=== PATIENT | male | born 1945 | race Caucasian/White ===

== ENCOUNTER 2024-02-09 10:12 | Inpatient (IN) ==
[2024-02-09 10:50] LABS: Basophils # (auto) 0.03 K/uL (0.00-0.20); Basophils % (auto) 0.4 %; Eosinophils # (auto) 0.02 K/uL (0.00-0.50); Eosinophils % (auto) 0.3 %; Hematocrit (blood only) 38.1 % (42.0-52.0); Hemoglobin 13.3 g/dl (14.0-18.0); Immature Granulocytes # (auto) 0.02 K/uL (0.01-0.20); Immature Granulocytes % (auto) 0.3 %; Lymphocytes # (auto) 0.57 K/uL (1.20-3.40); Lymphocytes % (auto) 7.2 %; Mean Corpuscular Hgb Conc 34.9 g/dL (32.0-36.0); Mean Corpuscular Volume 91.8 fL (80.0-100.0); Mean Platelet Volume 11.6 fL (9.4-12.4); Monocytes % (auto) 10.1 %; Neutrophils % (auto) 81.7 %; Platelet Count 152 K/uL (130-400); RDW Coefficient of Variation 13.4 % (11.5-14.5); RDW Standard Deviation 45.9 fL (36.4-46.3); Red Blood Count 4.15 M/uL (4.70-6.10); White Blood Count 7.94 K/ul (4.8-10.8)
[2024-02-09 11:04] LABS: Alanine Aminotransferase 9 U/L (7-52); Albumin Globulin Ratio 1.5 (0.9-2); Albumin Level 4.1 gm/dl (3.4-5.0); Alkaline Phosphatase 49 U/L (34-104); Anion Gap 9 (3-11); Aspartate Aminotransferase 18 U/L (13-39); Bilirubin,Total 0.9 mg/dl (0.2-1.0); Blood Urea Nitrogen 20 mg/dl (6-23); Carbon Dioxide 23 mmol/L (21-32); Chloride 105 mmol/L (98-107); Creatinine Clr Calc Pharmacy 47.9 ml/min; Est GFR (African American) 63.1 ml/min; Est GFR (Non-African American) 54.4 ml/min; Globulin 2.8 gm/dl (2.5-4.0); Glucose 129 mg/dl (70-99(Fasting)); Potassium 4.1 mmol/L (3.5-5.1); Sodium 137 mmol/L (136-145); Total Protein 6.9 gm/dl (6.0-8.3)
--- NOTE | 2024-02-09 11:09 | Emergency Department Note ---
Impression & Plan NSTEMI (non-ST elevated myocardial infarction), Lymphopenia, Atrial flutter, Generalized weakness ED Provider Note NAME: ZUHAIR SHORT AGE: 78 SEX: M : 1945 ARRIVES VIA: Ambulance INFORMANT: Patient ED PROVIDER(S): Richy Abrams MD CHIEF COMPLAINT: weakness, fall PLAN: Disposition: Admit MEDICAL DECISION MAKING: The patient is a pleasant 78-year-old gentleman with a past medical history of atrial fibrillation status post watchman not on anticoagulation, hypertension, hyperlipidemia, infrarenal AAA, CAD s/p PCI 2006 & 2008 who presents to the emergency department via EMS, by family for evaluation of worsening generalized weakness resulting in a controlled fall this morning where he reports she got out of bed to go to the bathroom and felt sudden weakness in his legs where he slowly went to the ground bracing himself on the side of the bathtub. He denies hitting his head. He was unable to get up without assistance. The patient presents in setting of being seen emergency department yesterday by this provider for symptoms of generalized weakness, body and joint aches which she reports was worse than his chronic body and joint aches but also felt chills but had not had any measured fevers. The patient had extensive testing for the negative CT scan of the head and lab work demonstrated mild lymphopenia and while preliminary tickborne illness testing was negative he was treated empirically with doxycycline for possible tickborne illness [place] to ticks though no known tick bites have been identified. Patient denies having any pain or injury from his fall. He is confident he did not hit his head. He has no pain in his hips or legs. The patient follows with [facility] cardiology and primary care and lives in the [facility]. He presents to our facility out of personal preference. Prior records are not immediately available. On evaluation the patient fatigued appearing but no distress, afebrile with heart in the 110s and suspected atrial flutter with variable AV block, and vital signs are stable. O2 saturation 95% on room air. EKG with likely atrial flutter with variable AV block without overt ST elevation or depression. CXR negative for acute cardiopulmonary process per my personal preliminary review/interpretation. WBC 7.9 lymphopenia again of 0.57. There is no neutrophilia or left shift. H/H similar to yesterday. Platelets also similar to yesterday within normal limits. Chemistry without metabolic acidosis. Lactate 1.1, within normal limits. Phosphorus 1.5 with repletion initiated. Magnesium 1.9, low normal with IV repletion provided. LFTs unremarkable. CPK within normal limits. High- sensitivity troponin was elevated at 670, nonspecific and of unclear significance at this time given patient denies any chest pain or shortness of breath. Lipase is not elevated. Procalcitonin is not elevated. TSH is normal limits. UA with 2+ ketones and otherwise no evidence of infection. For completeness carboxyhemoglobin was performed and was 1.8, within normal limits. CT of the chest was performed and was negative for PE. Mild emphysema is noted and trace pleural effusions. Dependent airspace opacities likely atelectasis. 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 We did attempt to obtain records from [facility] however the medical records office was closed on Saturday. Patient was given full dose aspirin given troponin elevation and heparin was also initiated out of caution though patient maintains that he has no chest pain now or recently. Case was discussed with Dr. Nassar, [facility] hospitalist, who will evaluate the patient for admission. Further management per admitting team. Triage Nursing notes reviewed and agree them. Prior/external medical records reviewed Vital Signs: reviewed Differential diagnosis: Infection, dehydration, metabolic abnormality, hypo/hyperglycemia, electrolyte disturbance, anemia, hypoxia, cardiac sources, intracerebral event, toxicologic, neurologic, as well as other pathologies. ER treatment provided: See below. Diagnostics interpreted by me: ECG: Suspect atrial flutter with variable AV block, 112 bpm, nonspecific ST and T wave abnormality, no overt ST elevation or depression, QTc 450, QRS 88. Cardiac Monitoring: An order for continuous cardiac monitoring was placed and demonstrated Suspect atrial flutter with variable AV block, 112 bpm. Laboratory studies: See below Imaging studies: See below Consultation(s): Case was discussed with Dr. Nassar, [facility] hospitalist, who will evaluate the patient for admission. HPI: The patient is a pleasant 78-year-old gentleman with a past medical history of atrial fibrillation status post watchman not on anticoagulation, hypertension, hyperlipidemia, infrarenal AAA, CAD s/p PCI 2006 & 2008 who presents to the emergency department via EMS, by family for evaluation of worsening generalized weakness resulting in a controlled fall this morning where he reports she got out of bed to go to the bathroom and felt sudden weakness in his legs where he slowly went to the ground bracing himself on the side of the bathtub. He denies hitting his head. He was unable to get up without assistance. The patient presents in setting of being seen emergency department yesterday by this provider for symptoms of generalized weakness, body and joint aches which she reports was worse than his chronic body and joint aches but also felt chills but had not had any measured fevers. The patient had extensive testing for the negative CT scan of the head and lab work demonstrated mild lymphopenia and while preliminary tickborne illness testing was negative he was treated empirically with doxycycline for possible tickborne illness given [place] and is exposed to ticks though no known tick bites have been identified. Patient denies having any pain or injury from his fall. He is confident he did not hit his head. He has no pain in his hips or legs. The patient follows with [facility] cardiology and primary care and lives in the [facility]. He presents to our facility out of personal preference. Prior records are not immediately available. ROS: See above HPI for pertinent positives & negatives. A total of 10 systems reviewed and were otherwise negative. VITALS:See Below PHYSICAL EXAMINATION: GENERAL: Awake, alert, fatigued-appearing, in no distress HENT: Normocephalic, atraumatic. Oropharynx with dry mucous membranes and otherwise unremarkable. EYES: Normal conjunctiva. Sclera non-icteric. NECK: Supple. No nuchal rigidity. FROM. No JVD. RESPIRATORY: Clear to auscultation. CARDIAC: Regular rate, normal rhythm. Extremities warm and well perfused. Pulses equal. ABDOMEN: Soft, non-distended. No tenderness to palpation. No rebound or guarding. No masses. RECTAL: Deferred. MUSCULOSKELETAL: Chest examination reveals no tenderness. The back is symmetrical on inspection without obvious abnormality. There is no CVA tenderness to palpation. No joint edema. LOWER EXTREMITIES: Calves are equal size bilaterally and non-tender. No edema. No discoloration. NEURO: Normal sensorium. No focal sensory or motor deficits noted. Generalized weakness with 4+/5 strength and SILT x 4 extremities. Cerebellar function intact including [id number]. DTRs wnl. No clonus. SKIN: No rash or jaundice noted. ED COURSE: Critical Care: I have personally spent greater than 35 minutes of critical care time in the direct management of this patient. This includes bedside care, interpretation of diagnostic studies, and testing, discussion with consultants, patient, and family members, and other required patient management activities. This 35 minutes is in excess of all separately billable procedures. Richy Abrams MD Past Med/Surg History Medical History Coronary artery disease AAA (abdominal aortic aneurysm) Hypertension Atrial fibrillation Surgical History History of heart artery stent Social History Smoking Status: Former smoker Tobacco Type: Cigarettes Preferred Language: Slovenian Feels Safe at Home: Yes Allergies Allergies Allergy/AdvReac Type Severity Reaction Status Date / Time No Known Allergies Allergy Unverified 02/09/24 11:37 Home Meds Home Medications Medication Instructions Recorded Confirmed Caltrate with Vitamin D3 600 mg PO PM 02/09/24 02/09/24 Vitamin D3 2,000 mcg PO DAILY 02/09/24 02/09/24 aspirin 81 mg PO DAILY 02/09/24 02/09/24 cyanocobalamin (vitamin B-12) 1,000 mcg PO DAILY 02/09/24 02/09/24 1,000 mcg sublingual tablet diltiazem HCl 120 mg 120 mg PO DAILY 02/09/24 02/09/24 capsule,extended release 24 hr (Cardizem CD) docusate calcium 240 mg PO PM 02/09/24 02/09/24 doxycycline hyclate 100 mg tablet 100 mg PO BID 02/09/24 02/09/24 (LymePak) ibandronate 150 mg tablet 150 mg PO MONTHLY 02/09/24 02/09/24 iron 65 mg PO [id number] 02/09/24 02/09/24 pravastatin 80 mg tablet 80 mg PO PM 02/09/24 02/09/24 Results & Data (ED) Vital Signs Vital Signs - 24 hr 02/09/24 10:27 02/09/24 10:29 02/09/24 12:37 Temperature 36.8 C Temperature Source Oral Pulse Rate 102 H 100 H Pulse Rate [Apical] 110 H Respiratory Rate 20 20 Respiratory Effort / Characteristics Non-Labored Non-Labored Respiratory Depth Normal Normal Blood Pressure 141/95 H Blood Pressure [Right Arm] 117/69 Blood Pressure Mean 110 Blood Pressure Mean [Right Arm] 85 Pulse Oximetry 93 95 Oxygen Delivery Method Room Air Room Air Sepsis Recent Fever Within 48 Hours No Sepsis New/Unexplained Change in Mental Status No Sepsis Action Taken by Nursing No Action Required 02/09/24 15:11 02/09/24 15:39 Temperature Temperature Source Pulse Rate Pulse Rate [Apical] 92 H 97 H Respiratory Rate 20 18 Respiratory Effort / Characteristics Non-Labored Non-Labored Spontaneous Respiratory Depth Normal Normal Blood Pressure Blood Pressure [Right Arm] 124/88 127/71 Blood Pressure Mean Blood Pressure Mean [Right Arm] 100 89 Pulse Oximetry 98 98 Oxygen Delivery Method Room Air Room Air Sepsis Recent Fever Within 48 Hours Sepsis New/Unexplained Change in Mental Status Sepsis Action Taken by Nursing Laboratory Data Attestation: I reviewed the patient's lab results. 02/09/24 10:25 02/09/24 10:25 Lab Results 02/09/24 02/09/24 02/09/24 Range/Units 10:25 11:15 11:58 WBC 7.94 (4.8-10.8) K/ul RBC 4.15 L (4.70-6.10) M/uL Hgb 13.3 L (14.0-18.0) g/dl Hct 38.1 L (42.0-52.0) % MCV 91.8 (80.0-100.0) fL MCH 32.0 (25.0-34.0) pg MCHC 34.9 (32.0-36.0) g/dL RDW Std Deviation 45.9 (36.4-46.3) fL RDW Coeff of Marco 13.4 (11.5-14.5) % Plt Count 152 (130-400) K/uL MPV 11.6 (9.4-12.4) fL Immature Gran % (Auto) 0.3 % Neut % (Auto) 81.7 % Lymph % (Auto) 7.2 % Elbert % (Auto) 10.1 % Eos % (Auto) 0.3 % Baso % (Auto) 0.4 % Neut # (Auto) 6.50 (1.40-6.50) K/uL Lymph # (Auto) 0.57 L (1.20-3.40) K/uL Elbert # (Auto) 0.80 H (0.11-0.59) K/uL Eos # (Auto) 0.02 (0.00-0.50) K/uL Baso # (Auto) 0.03 (0.00-0.20) K/uL Immature Gran # (Auto) 0.02 (0.01-0.20) K/uL PT 11.2 (9.0-12.0) Seconds INR 1.0 (0.9-1.1) APTT 32 H (21-31) Seconds PTT Ratio 1.1 Carboxyhemoglobin % THgb Sodium 137 (136-145) mmol/L Potassium 4.1 (3.5-5.1) mmol/L Chloride 105 (98-107) mmol/L Carbon Dioxide 23 (21-32) mmol/L Anion Gap 9 (3-11) BUN 20 (6-23) mg/dl Creatinine 1.25 (0.6-1.4) mg/dl Est Cr Clr Drug Dosing 47.9 ml/min Est GFR ( Amer) 63.1 ml/min Est GFR (Non-Af Amer) 54.4 ml/min BUN/Creatinine Ratio 16.0 (10-20) Glucose 129 H (70-99(Fasting)) mg/dl Lactate 1.1 (0.4-2.0) mmol/L Calcium 9.0 (8.6-10.3) mg/dl Phosphorus 1.5 L* (2.5-4.9) mg/dl Magnesium 1.9 (1.7-2.4) mg/dl Total Bilirubin 0.9 (0.2-1.0) mg/dl AST 18 (13-39) U/L ALT 9 (7-52) U/L Alkaline Phosphatase 49 (34-104) U/L Total Creatine Kinase 131 (30-223) U/L Troponin I High Sens 676.5 H* (0-20) pg/ml B-Natriuretic Peptide (0-100) pg/ml Total Protein 6.9 (6.0-8.3) gm/dl Albumin 4.1 (3.4-5.0) gm/dl Globulin 2.8 (2.5-4.0) gm/dl Albumin/Globulin Ratio 1.5 (0.9-2) Lipase < 3 L (11-82) U/L Procalcitonin 0.07 (0-0.5) ng/ml TSH 3.253 (0.300-4.500) uIu/ml Urine Color Yellow Urine Appearance Clear (Clear) Urine pH 7.0 (4.5-7.5) Ur Specific [place] 1.021 (1.000-1.030) Urine Protein 1+ H (Negative) Urine Glucose (UA) Negative (Negative) Urine Ketones 2+ H (Negative) Urine Blood Negative (Negative) Urine Nitrite Negative (Negative) Urine Bilirubin Negative (Negative) Urine Urobilinogen Negative (Negative) Ur Leukocyte Esterase Negative (Negative) Urine WBC (Auto) 0 (0-5) /hpf Urine RBC (Auto) 0-4 (0-4) /hpf U Hyaline Cast (Auto) 0 (0-5) /lpf U Epithel Cells (Auto) 5-10 H (0-5) /lpf Urine Bacteria (Auto) Negative (Negative) 02/09/24 02/09/24 02/09/24 Range/Units 12:03 12:41 13:46 WBC (4.8-10.8) K/ul RBC (4.70-6.10) M/uL Hgb (14.0-18.0) g/dl Hct (42.0-52.0) % MCV (80.0-100.0) fL MCH (25.0-34.0) pg MCHC (32.0-36.0) g/dL RDW Std Deviation (36.4-46.3) fL RDW Coeff of Marco (11.5-14.5) % Plt Count (130-400) K/uL MPV (9.4-12.4) fL Immature Gran % (Auto) % Neut % (Auto) % Lymph % (Auto) % Elbert % (Auto) % Eos % (Auto) % Baso % (Auto) % Neut # (Auto) (1.40-6.50) K/uL Lymph # (Auto) (1.20-3.40) K/uL Elbert # (Auto) (0.11-0.59) K/uL Eos # (Auto) (0.00-0.50) K/uL Baso # (Auto) (0.00-0.20) K/uL Immature Gran # (Auto) (0.01-0.20) K/uL PT (9.0-12.0) Seconds INR (0.9-1.1) APTT (21-31) Seconds PTT Ratio Carboxyhemoglobin 1.8 % THgb Sodium (136-145) mmol/L Potassium (3.5-5.1) mmol/L Chloride (98-107) mmol/L Carbon Dioxide (21-32) mmol/L Anion Gap (3-11) BUN (6-23) mg/dl Creatinine (0.6-1.4) mg/dl Est Cr Clr Drug Dosing ml/min Est GFR ( Amer) ml/min Est GFR (Non-Af Amer) ml/min BUN/Creatinine Ratio (10-20) Glucose (70-99(Fasting)) mg/dl Lactate (0.4-2.0) mmol/L Calcium (8.6-10.3) mg/dl Phosphorus (2.5-4.9) mg/dl Magnesium (1.7-2.4) mg/dl Total Bilirubin (0.2-1.0) mg/dl AST (13-39) U/L ALT (7-52) U/L Alkaline Phosphatase (34-104) U/L Total Creatine Kinase 151 (30-223) U/L Troponin I High Sens 907.4 H* D (0-20) pg/ml B-Natriuretic Peptide 444 H (0-100) pg/ml Total Protein (6.0-8.3) gm/dl Albumin (3.4-5.0) gm/dl Globulin (2.5-4.0) gm/dl Albumin/Globulin Ratio (0.9-2) Lipase (11-82) U/L Procalcitonin (0-0.5) ng/ml TSH (0.300-4.500) uIu/ml Urine Color Urine Appearance (Clear) Urine pH (4.5-7.5) Ur Specific [place] (1.000-1.030) Urine Protein (Negative) Urine Glucose (UA) (Negative) Urine Ketones (Negative) Urine Blood (Negative) Urine Nitrite (Negative) Urine Bilirubin (Negative) Urine Urobilinogen (Negative) Ur Leukocyte Esterase (Negative) Urine WBC (Auto) (0-5) /hpf Urine RBC (Auto) (0-4) /hpf U Hyaline Cast (Auto) (0-5) /lpf U Epithel Cells (Auto) (0-5) /lpf Urine Bacteria (Auto) (Negative) Administered Medications Heparin Sodium/Dextrose (Heparin Sodium/Dextrose) 25,000 units in 500 mls @ 18 mls/hr IV .Q24H JAVIER; Protocol Stop: 03/10/24 15:44 Last Admin: 02/09/24 16:17 Dose: 900 units/hr, 18 mls/hr Documented By: BLAS Co-signed By: KAI Doxycycline Hyclate 100 mg/ (Dextrose) 100 mls @ 50 mls/hr IV Q12H JAVIER Stop: 02/11/24 17:29 Last Infusion: 02/09/24 19:37 Dose: Infused Documented By: Admin: 02/09/24 17:34 Dose: 50 mls/hr Documented By: BLAS Discontinued Medications Aspirin (Aspirin Chew 324 Mg) 324 mg PO NOW STA Stop: 02/09/24 15:25 Last Admin: 02/09/24 15:39 Dose: 324 mg Documented By: BLAS Heparin Sodium (Porcine) (Heparin Sod (Porcine) 1000 Unit/Ml) 1 units IV NOW ONE Stop: 02/09/24 15:42 Last Admin: 02/09/24 16:17 Dose: 4,000 units Documented By: BLAS Co-signed By: KAI Heparin Sodium/Dextrose (Heparin Iv Adult Wt-Based Low-Dose W/ Initial Bolus Protocol) 1 each IV NOW STA; Protocol Stop: 02/09/24 15:25 Last Admin: 02/09/24 16:21 Dose: Not Given Documented By: BLAS Sodium Chloride (Nss) 1,000 mls @ 999 mls/hr IV .Q1H1M ONE Stop: 02/09/24 12:34 Last Infusion: 02/09/24 13:03 Dose: Infused Documented By: Admin: 02/09/24 11:50 Dose: 999 mls/hr Documented By: SARAI Magnesium Sulfate/Dextrose (Magnesium Sulfate / D5w) 1 gm in 100 mls @ 100 mls/hr IV NOW STA Stop: 02/09/24 12:50 Last Infusion: 02/09/24 13:36 Dose: Infused Documented By: Admin: 02/09/24 12:36 Dose: 100 mls/hr Documented By: SARAI Potassium Phosphate 9 mmol/ (Sodium Chloride) 253 mls @ 88 mls/hr IV NOW STA Stop: 02/09/24 15:02 Last Infusion: 02/09/24 16:35 Dose: Infused Documented By: Admin: 02/09/24 13:34 Dose: 88 mls/hr Documented By: NALLELY Acetaminophen (Ofirmev) 1,000 mg in 100 mls @ 400 mls/hr IV NOW STA Stop: 02/09/24 12:25 Last Infusion: 02/09/24 13:03 Dose: Infused Documented By: Admin: 02/09/24 12:36 Dose: 400 mls/hr Documented By: SARAI Ioversol (Optiray 320 125ml) 114 ml IV ONCE ONE Stop: 02/09/24 12:35 Last Admin: 02/09/24 12:35 Dose: 114 ml Documented By: GEJuarez Potassium Phosphate (Potassium Phos 3 Mmol/1 Ml Infusion) 9 mmol IV NOW STA Stop: 02/09/24 11:49 Last Admin: 02/09/24 13:03 Dose: Not Given Documented By: SARAI Imaging Data Radiologist's Impression: Chest X-Ray 02/09/24 11:07 SINGLE VIEW CHEST CLINICAL HISTORY: Generalized weakness. FINDINGS: An AP, portable, upright chest radiograph is compared to study dated 02/08/2024. The heart is enlarged noting atherosclerotic calcification of the thoracic aorta. The pulmonary vasculature is noncongested. Chronic interstitial thickening is similar to previous. Mild scarring/atelectasis is noted at the lung bases. The lungs and pleural spaces are otherwise clear. No pneumothorax is seen. The skeletal structures are osteopenic. The bony thorax is grossly intact. IMPRESSION: Cardiomegaly with no active disease in the chest. ACT 112: Negative or not required by law. Electronically signed by: Chuy Farias M.D. 02/09/2024 11:51 AM Abdomen/Pelvis CT 02/09/24 11:48 CT ANGIOGRAM OF THE CHEST; CT SCAN OF THE ABDOMEN AND PELVIS WITH IV CONTRAST CLINICAL HISTORY: Fever. Vomiting. Generalized weakness. Elevated troponin. Generalized abdominal pain. COMPARISON STUDY: Chest x-ray dated 02/09/2024. TECHNIQUE: Following the IV administration of 114 of Optiray 320, CT angiogram of the chest is performed from the upper abdomen to the thoracic inlet utilizing the pulmonary embolus protocol. Images are reviewed in the axial, sagittal, coronal planes. 3-D MIPS images are created and assessed. Subsequently, CT scan of the abdomen and pelvis was performed from the lung bases to the proximal femora. Images are reviewed in the axial, sagittal, and coronal planes. IV contrast was administered without complication. A dose lowering technique was utilized adhering to the principles of ALARA. The examination are compromised by motion artifact, as well as by streak artifact from the arms which could not be elevated above the chest or abdomen. CT DOSE: 2962.12 mGy.cm FINDINGS: CHEST: Thyroid: Imaged portions of the thyroid gland are normal in size and attenuation. Thoracic aorta: There is moderate atherosclerotic calcification of the thoracic aorta. There is mild aneurysmal dilatation of the ascending thoracic aorta which measures up to 4.4 cm diameter. The remainder of the thoracic aorta is normal in caliber, and the arch demonstrates standard 3-vessel arch anatomy. The thoracic aorta is not well opacified. Pulmonary vasculature: The main pulmonary arteries are dilated suggesting pulmonary artery hypertension. There are no filling defects identified in the main, lobar, or segmental pulmonary arteries to indicate pulmonary embolus. Heart: A left atrial appendage device is in place. The heart is enlarged and without pericardial effusion. The coronary arteries are densely calcified. Lungs and pleural spaces: Evaluation of the lung parenchyma is degraded by motion artifact. There is mild emphysematous change. Trace pleural effusions are seen bilaterally. Bibasilar airspace opacities likely related to scarring/atelectasis. The trachea and central airways are clear. Mediastinum: Mildly enlarged prevascular lymph nodes measure up to 11 mm in short axis. Fernanda: Clear. Axillae: There is no axillary lymphadenopathy. Bony thorax: The skeletal structures are osteopenic. Degenerative change and hyperkyphosis is noted in the thoracic spine. No lytic or blastic lesions are identified. ABDOMEN AND PELVIS: Liver: The contrast-enhanced liver is normal in size, contour, and attenuation. There is no intrahepatic biliary ductal dilatation. The hepatic veins and portal veins are patent. A 12 mm right lobe hypodensity on image #90 likely presents a cyst but cannot be definitively characterized due to streak artifact. Gallbladder: Unremarkable. Spleen: Normal in size and attenuation. Pancreas: Moderately atrophic and grossly unremarkable. Adrenal glands: Unremarkable. Kidneys: The contrast enhanced kidneys are normal in size and without hydronephrosis. The kidneys enhance symmetrically. Renal sinus cysts are seen bilaterally. Bilateral renal cysts measure up to 3.6 cm. Additional subcentimeter cortical hypodensities also likely represent cysts but are too small for definitive characterization. Abdominal vasculature: There is advanced atherosclerotic calcification of the abdominal aorta. An infrarenal abdominal aortic aneurysm measures up to 3.4 cm. There is mild aneurysmal dilatation of the left common iliac artery which measures up to 2.0 cm. Bowel: There are scattered colonic diverticula without CT evidence of acute diverticulitis. No bowel obstruction is seen. Mild/moderate fecal retention is noted throughout the colon. The appendix is well-visualized and normal. Peritoneum: No intraperitoneal free air is identified. There is trace free fluid in the pelvis. There is a fat-containing umbilical hernia. Lymphadenopathy: None. Pelvic viscera: The prostate gland is markedly enlarged and heterogeneous. The bladder wall is thickened/trabeculated indicating chronic outlet obstruction. There is a large fat-containing left groin hernia. Skeletal structures: The skeletal structures are osteopenic. No lytic or blastic lesions are seen. Soft tissues: A small metallic foreign body is seen at the dermal surface of the left buttock on axial image #274. IMPRESSION: 1. There is no evidence of pulmonary embolus in the main, lobar, or segmental pulmonary arteries. 2. Cardiomegaly, mild emphysema, and trace pleural effusions. 3. Dependent airspace opacities likely represent scarring/atelectasis. Correlate clinically. 4. There is mild aneurysmal dilatation of the ascending thoracic aorta which measures up to 4.4 cm in diameter. 5. No acute infectious or inflammatory findings are identified in the abdomen or pelvis. 6. Trace nonspecific free fluid is seen in the pelvis. 7. There is a 3.4 cm infrarenal abdominal aortic aneurysm. 8. Additional findings as above. ACT 112: Negative or not required by law. Electronically signed by: Chuy Farias M.D. 02/09/2024 2:13 PM Chest CTA 02/09/24 11:48 CT ANGIOGRAM OF THE CHEST; CT SCAN OF THE ABDOMEN AND PELVIS WITH IV CONTRAST CLINICAL HISTORY: Fever. Vomiting. Generalized weakness. Elevated troponin. Generalized abdominal pain. COMPARISON STUDY: Chest x-ray dated 02/09/2024. TECHNIQUE: Following the IV administration of 114 of Optiray 320, CT angiogram of the chest is performed from the upper abdomen to the thoracic inlet utilizing the pulmonary embolus protocol. Images are reviewed in the axial, sagittal, coronal planes. 3-D MIPS images are created and assessed. Subsequently, CT scan of the abdomen and pelvis was performed from the lung bases to the proximal femora. Images are reviewed in the axial, sagittal, and coronal planes. IV contrast was administered without complication. A dose lowering technique was utilized adhering to the principles of ALARA. The examination are compromised by motion artifact, as well as by streak artifact from the arms which could not be elevated above the chest or abdomen. CT DOSE: 2962.12 mGy.cm FINDINGS: CHEST: Thyroid: Imaged portions of the thyroid gland are normal in size and attenuation. Thoracic aorta: There is moderate atherosclerotic calcification of the thoracic aorta. There is mild aneurysmal dilatation of the ascending thoracic aorta which measures up to 4.4 cm diameter. The remainder of the thoracic aorta is normal in caliber, and the arch demonstrates standard 3-vessel arch anatomy. The thoracic aorta is not well opacified. Pulmonary vasculature: The main pulmonary arteries are dilated suggesting pulmonary artery hypertension. There are no filling defects identified in the main, lobar, or segmental pulmonary arteries to indicate pulmonary embolus. Heart: A left atrial appendage device is in place. The heart is enlarged and without pericardial effusion. The coronary arteries are densely calcified. Lungs and pleural spaces: Evaluation of the lung parenchyma is degraded by motion artifact. There is mild emphysematous change. Trace pleural effusions are seen bilaterally. Bibasilar airspace opacities likely related to scarring/atelectasis. The trachea and central airways are clear. Mediastinum: Mildly enlarged prevascular lymph nodes measure up to 11 mm in short axis. Fernanda: Clear. Axillae: There is no axillary lymphadenopathy. Bony thorax: The skeletal structures are osteopenic. Degenerative change and hyperkyphosis is noted in the thoracic spine. No lytic or blastic lesions are identified. ABDOMEN AND PELVIS: Liver: The contrast-enhanced liver is normal in size, contour, and attenuation. There is no intrahepatic biliary ductal dilatation. The hepatic veins and portal veins are patent. A 12 mm right lobe hypodensity on image #90 likely presents a cyst but cannot be definitively characterized due to streak artifact. Gallbladder: Unremarkable. Spleen: Normal in size and attenuation. Pancreas: Moderately atrophic and grossly unremarkable. Adrenal glands: Unremarkable. Kidneys: The contrast enhanced kidneys are normal in size and without hydronephrosis. The kidneys enhance symmetrically. Renal sinus cysts are seen bilaterally. Bilateral renal cysts measure up to 3.6 cm. Additional subcentimeter cortical hypodensities also likely represent cysts but are too small for definitive characterization. Abdominal vasculature: There is advanced atherosclerotic calcification of the abdominal aorta. An infrarenal abdominal aortic aneurysm measures up to 3.4 cm. There is mild aneurysmal dilatation of the left common iliac artery which measures up to 2.0 cm. Bowel: There are scattered colonic diverticula without CT evidence of acute diverticulitis. No bowel obstruction is seen. Mild/moderate fecal retention is noted throughout the colon. The appendix is well-visualized and normal. Peritoneum: No intraperitoneal free air is identified. There is trace free fluid in the pelvis. There is a fat-containing umbilical hernia. Lymphadenopathy: None. Pelvic viscera: The prostate gland is markedly enlarged and heterogeneous. The bladder wall is thickened/trabeculated indicating chronic outlet obstruction. There is a large fat-containing left groin hernia. Skeletal structures: The skeletal structures are osteopenic. No lytic or blastic lesions are seen. Soft tissues: A small metallic foreign body is seen at the dermal surface of the left buttock on axial image #274. IMPRESSION: 1. There is no evidence of pulmonary embolus in the main, lobar, or segmental pulmonary arteries. 2. Cardiomegaly, mild emphysema, and trace pleural effusions. 3. Dependent airspace opacities likely represent scarring/atelectasis. Correlate clinically. 4. There is mild aneurysmal dilatation of the ascending thoracic aorta which measures up to 4.4 cm in diameter. 5. No acute infectious or inflammatory findings are identified in the abdomen or pelvis. 6. Trace nonspecific free fluid is seen in the pelvis. 7. There is a 3.4 cm infrarenal abdominal aortic aneurysm. 8. Additional findings as above. ACT 112: Negative or not required by law. Electronically signed by: Chuy Farias M.D. 02/09/2024 2:[address] 03/31/24 11:48 CT SCAN OF THE BRAIN WITHOUT IV CONTRAST CLINICAL HISTORY: Headache. Fever. Generalized weakness. Vomiting. COMPARISON STUDY: CT of the brain dated 02/08/2024. TECHNIQUE: Unenhanced axial CT scan of the brain is performed from the vertex to the skull base. A dose lowering technique was utilized adhering to the principles of ALARA. FINDINGS: Brain parenchyma: There is age-related involutional change noting moderate subcortical and periventricular microangiopathic disease. There is no hemorrhage, mass effect, or evidence of acute territorial ischemia by CT criteria. A focus of right frontal encephalomalacia is consistent with a remote insult. Wynn-white matter differentiation is preserved. No extra-axial fluid collection is seen. Ventricles, sulci, cisterns: Prominent secondary to involutional change. Cavum septum pellucidum is incidentally noted. Intracranial vasculature: There is atherosclerotic calcification of the cavernous carotid arteries. Calvarium: Unremarkable. Soft tissues: There is a 2.5 cm lipoma in the left frontal scalp. Sinuses and mastoids: The visualized paranasal sinuses are clear. The mastoid air cells are well pneumatized. Orbits: The bony orbits are grossly intact. There are bilateral ocular lens implants. IMPRESSION: There is no hemorrhage, mass effect, or evidence of acute territorial ischemia by CT criteria. ACT 112: Negative or not required by law. Electronically signed by: Chuy Farias M.D. 02/09/2024 12:41 PM Discharge Plan Visit Data Chief Complaint: Fall Stated Complaint: FALL/GENERALIZED WEAKNESS ED Provider: Richy Abrams Discharge Problem: NSTEMI (non-ST elevated myocardial infarction), Lymphopenia, Atrial flutter, Generalized weakness Patient Disposition: Admitted As Inpatient Discharge Instructions Interventions: ED Discharge Assessment Last Done: 02/09/24 16:51 Discharge Problem: Atrial flutter Qualifiers: Atrial flutter type: unspecified Qualified Code(s): I48.92 - Unspecified atrial flutter
[2024-02-09 11:23] LABS: Prothrombin Time 11.2 Seconds (9.0-12.0)
[2024-02-09 11:44] LABS: Creatine Kinase 131 U/L (30-223); Lipase < 3 U/L (11-82); Magnesium 1.9 mg/dl (1.7-2.4); Phosphorus 1.5 mg/dl (2.5-4.9); Troponin I High Sensitivity 676.5 pg/ml (0-20)
[2024-02-09 11:45] LABS: Thyroid Stimulating Hormone 3.253 uIu/ml (0.300-4.500)
[2024-02-09] MEDS: SODIUM CHLORIDE 0.9% 1,000 ML IV ONE (11:50)
--- NOTE | 2024-02-09 11:52 | XRay Report ---
SINGLE VIEW CHEST CLINICAL HISTORY: Generalized weakness. FINDINGS: An AP, portable, upright chest radiograph is compared to study dated 02/08/2024. The heart i s enlarged noting atherosclerotic calcification of the thoracic aorta. The pulmonary vasculature is n oncongested. Chronic interstitial thickening is similar to previous. Mild scarring/atelectasis is not ed at the lung bases. The lungs and pleural spaces are otherwise clear. No pneumothorax is seen. The skeletal structures are osteopenic. The bony thorax is grossly intact. IMPRESSION: Cardiomegaly with no active disease in the chest. ACT 112: Negative or not required by law. Electronically signed by: Chuy Farias M.D. 02/09/2024 11:51 AM
[2024-02-09 12:16] LABS: Appearance Urine Clear (Clear); Bacteria Urine Automated Negative (Negative); Bilirubin Urine Negative (Negative); Blood Urine Negative (Negative); Cast Urine Automated 0 /lpf (0-5); Color Urine Yellow; Glucose Urine UA Negative (Negative); Ketones Urine 2+ (Negative); Leukocyte Esterase Urine Negative (Negative); Nitrite Urine Negative (Negative); Protein Urine 1+ (Negative); RBC Urine Automated 0-4 /hpf (0-4); Specific Gravity Urine 1.021 (1.000-1.030); Urobilinogen Urine Negative (Negative); WBC Urine Automated 0 /hpf (0-5)
[2024-02-09] MEDS: OPTIRAY 320 125ml IV ONE (12:35)
[2024-02-09] MEDS: MAGNESIUM SULFATE / D5W 1 GM/100 ML BAG IV STA (12:36)
[2024-02-09] MEDS: ACETAMINOPHEN 1,000 MG/100 ML VIAL IV STA (12:36)
--- NOTE | 2024-02-09 12:42 | CT Scan Report ---
CT SCAN OF THE BRAIN WITHOUT IV CONTRAST CLINICAL HISTORY: Headache. Fever. Generalized weakness. Vomiting. COMPARISON STUDY: CT of the brain dated 02/08/2024. TECHNIQUE: Unenhanced axial CT scan of the brain is performed from the vertex to the skull base. A do se lowering technique was utilized adhering to the principles of ALARA. FINDINGS: Brain parenchyma: There is age-related involutional change noting moderate subcortical and periventri cular microangiopathic disease. There is no hemorrhage, mass effect, or evidence of acute territorial ischemia by CT criteria. A focus of right frontal encephalomalacia is consistent with a remote insul t. Wynn-white matter differentiation is preserved. No extra-axial fluid collection is seen. Ventricles, sulci, cisterns: Prominent secondary to involutional change. Cavum septum pellucidum is i ncidentally noted. Intracranial vasculature: There is atherosclerotic calcification of the cavernous carotid arteries. Calvarium: Unremarkable. Soft tissues: There is a 2.5 cm lipoma in the left frontal scalp. Sinuses and mastoids: The visualized paranasal sinuses are clear. The mastoid air cells are well pneu matized. Orbits: The bony orbits are grossly intact. There are bilateral ocular lens implants. IMPRESSION: There is no hemorrhage, mass effect, or evidence of acute territorial ischemia by CT shahnaz jaffe. ACT 112: Negative or not required by law. Electronically signed by: Chuy Farias M.D. 02/09/2024 12:41 PM
[2024-02-09] MEDS: POTASSIUM PHOS 3 MMOL/1 ML INFUSION IV STA (13:03)
[2024-02-09] MEDS: POTASSIUM PHOSPHATE 9 MMOL in SODIUM CHLORIDE 0.9% 250 ML IV STA (13:34)
--- NOTE | 2024-02-09 14:15 | CT Scan Report ---
CT ANGIOGRAM OF THE CHEST; CT SCAN OF THE ABDOMEN AND PELVIS WITH IV CONTRAST CLINICAL HISTORY: Fever. Vomiting. Generalized weakness. Elevated troponin. Generalized abdominal jose n. COMPARISON STUDY: Chest x-ray dated 02/09/2024. TECHNIQUE: Following the IV administration of 114 of Optiray 320, CT angiogram of the chest is perfor med from the upper abdomen to the thoracic inlet utilizing the pulmonary embolus protocol. Images are reviewed in the axial, sagittal, coronal planes. 3-D MIPS images are created and assessed. Subsequen tly, CT scan of the abdomen and pelvis was performed from the lung bases to the proximal femora. Imag es are reviewed in the axial, sagittal, and coronal planes. IV contrast was administered without comp lication. A dose lowering technique was utilized adhering to the principles of ALARA. The examination are compromised by motion artifact, as well as by streak artifact from the arms which could not be e levated above the chest or abdomen. CT DOSE: 2962.12 mGy.cm FINDINGS: CHEST: Thyroid: Imaged portions of the thyroid gland are normal in size and attenuation. Thoracic aorta: There is moderate atherosclerotic calcification of the thoracic aorta. There is mild aneurysmal dilatation of the ascending thoracic aorta which measures up to 4.4 cm diameter. The remai nder of the thoracic aorta is normal in caliber, and the arch demonstrates standard 3-vessel arch philly radha. The thoracic aorta is not well opacified. Pulmonary vasculature: The main pulmonary arteries are dilated suggesting pulmonary artery hypertensi on. There are no filling defects identified in the main, lobar, or segmental pulmonary arteries to in dicate pulmonary embolus. Heart: A left atrial appendage device is in place. The heart is enlarged and without pericardial effu renu. The coronary arteries are densely calcified. Lungs and pleural spaces: Evaluation of the lung parenchyma is degraded by motion artifact. There is mild emphysematous change. Trace pleural effusions are seen bilaterally. Bibasilar airspace opacities likely related to scarring/atelectasis. The trachea and central airways are clear. Mediastinum: Mildly enlarged prevascular lymph nodes measure up to 11 mm in short axis. Fernanda: Clear. Axillae: There is no axillary lymphadenopathy. Bony thorax: The skeletal structures are osteopenic. Degenerative change and hyperkyphosis is noted i n the thoracic spine. No lytic or blastic lesions are identified. ABDOMEN AND PELVIS: Liver: The contrast-enhanced liver is normal in size, contour, and attenuation. There is no intrahepa tic biliary ductal dilatation. The hepatic veins and portal veins are patent. A 12 mm right lobe hypo density on image #90 likely presents a cyst but cannot be definitively characterized due to streak ar tifact. Gallbladder: Unremarkable. Spleen: Normal in size and attenuation. Pancreas: Moderately atrophic and grossly unremarkable. Adrenal glands: Unremarkable. Kidneys: The contrast enhanced kidneys are normal in size and without hydronephrosis. The kidneys enh ance symmetrically. Renal sinus cysts are seen bilaterally. Bilateral renal cysts measure up to 3.6 c m. Additional subcentimeter cortical hypodensities also likely represent cysts but are too small for definitive characterization. Abdominal vasculature: There is advanced atherosclerotic calcification of the abdominal aorta. An inf rarenal abdominal aortic aneurysm measures up to 3.4 cm. There is mild aneurysmal dilatation of the l eft common iliac artery which measures up to 2.0 cm. Bowel: There are scattered colonic diverticula without CT evidence of acute diverticulitis. No bowel obstruction is seen. Mild/moderate fecal retention is noted throughout the colon. The appendix is we ll-visualized and normal. Peritoneum: No intraperitoneal free air is identified. There is trace free fluid in the pelvis. There is a fat-containing umbilical hernia. Lymphadenopathy: None. Pelvic viscera: The prostate gland is markedly enlarged and heterogeneous. The bladder wall is thicke abdirashid/trabeculated indicating chronic outlet obstruction. There is a large fat-containing left groin he rnia. Skeletal structures: The skeletal structures are osteopenic. No lytic or blastic lesions are seen. Soft tissues: A small metallic foreign body is seen at the dermal surface of the left buttock on axia l image #274. IMPRESSION: 1. There is no evidence of pulmonary embolus in the main, lobar, or segmental pulmonary arteries. 2. Cardiomegaly, mild emphysema, and trace pleural effusions. 3. Dependent airspace opacities likely represent scarring/atelectasis. Correlate clinically. 4. There is mild aneurysmal dilatation of the ascending thoracic aorta which measures up to 4.4 cm in diameter. 5. No acute infectious or inflammatory findings are identified in the abdomen or pelvis. 6. Trace nonspecific free fluid is seen in the pelvis. 7. There is a 3.4 cm infrarenal abdominal aortic aneurysm. 8. Additional findings as above. ACT 112: Negative or not required by law. Electronically signed by: Chuy Farias M.D. 02/09/2024 2:13 PM
[2024-02-09 14:19] LABS: Troponin I High Sensitivity 907.4 pg/ml (0-20)
--- NOTE | 2024-02-09 15:34 | History & Physical Report ---
Date of Service February 09, 2024 Assessment & Plan (1) Lymphopenia: Plan: Chills, leukopenia ? Tickborne versus viral. Respiratory bio fire was neg 02/08/2024, patient does not have cough/pulmonary symptoms. No etoh use. CXR clear. No signs of cellulitis No signs of pneumonia, no urinary symptoms Initial Lyme screen was negative, Anaplasma/Babesia/extended tick panel/DNA PCR is pending Continue empiric doxycycline Blood cultures pending Patient does not appear septic on admission Lactate normal CT head naf - PCT wnl - anemia 13.3, no known prior hx although limtied records. Parvovirus serology added (2) NSTEMI (non-ST elevated myocardial infarction): Plan: NSTEMI Without chest pain/chest pressure, is with underlying history of A-fib status post watchman and appears to be in a flutter on admission ? Demand versus viral versus tickborne CTA is without evidence of PE. Does show cardiomegaly with trace pleural effusions, dependent opacities suspicious for scarring/atelectasis are noted. No acute infectious findings 3.4 cm infrarenal abdominal aortic aneurysm is noted, patient is aware of this and reports he has this followed annually and has been stable less than 4 cm Heparinize given uptrending troponins - Echo pending History of CAD Reportedly with PCI and 2 stents, records pending from [facility]. Sees Dr. leiva. Denies hx of heart failure Echo pending Continue Cardizem Pravastatin 80 mg continued, lipid panel pending.? Conversion to atorvastatin. Patient reports he has been on this for a while and does not think he had any problems with muscle aches when this was started. Continue aspirin, recieved full dose on admit (3) Atrial fibrillation: Plan: S/p watchman.? Flutter on admitting EKG Follow on telemetry, metoprolol IV available on-call if needed Adequate rate on admit (4) Hypertension: Plan: Continue diltiazem Plan Chronic stable issues: Osteoporosis: Has been on outpatient bisphosphonate, no acute change in management DVT prophylaxis: Heparinized Diet: Heart healthy Disposition: PCU for A-fib/flutter and NSTEMI CODE STATUS: DNR/ History of Present Illness Primary Care Provider: Mike Faria is a 78-year-old male with past medical history of A-fib/a flutter s/p Watchman device no longer on anticoagulation, CAD reportedly with PCI and stents in approximately 2008 records pending from [facility] who presented to the ER emergency department 02/08/2024 with generalized bodyaches, joint pain, headache, chills, and feeling feverish without measured temperature was noted to be leukopenic at that time. EKG at that time was nonischemic, chest x-ray did not show acute findings, and bio fire was negative. Due to body aches, joint pain, chills with associated leukopenia patient had a extended tickborne panel sent out although initial Lyme screening was negative, was started on empiric doxycycline twice daily. Patient returns 1 day later 02/09/2024 with fatigue, lower extremity bilateral weakness, continued joint aches, and chills. He had no loss of consciousness or head strike. Repeat labs show EKG suspect a flutter without ischemic changes, and checks x- ray was without acute findings. Patient remains leukopenic. Phosphorus was low and repleted. High sensitive troponin was elevated at 670, repeat uptrending at 907. Patient did not have chest pain or shortness of breath at any point preceding admission or on admission. Given his failure to improve, elevated troponin, and overall poor clinical appearance he was recommended for admission and additional monitoring Patient seen at the bedside. He reports that he has had chronic muscle aches and joint pains for many years however these have been completely different in the last 2 to 3 days. Reports he has diffuse joint pains in his hips knees and shoulders, has felt that he has had chills and sweats, although has not had a measured temperature. He has not any chest pain at any point. Denies shortness of breath. Denies cough. Denies sputum production. Denies nausea, vomiting, abdominal pain, diarrhea, constipation. No hematochezia or melena. He has not syncopized. Does feel generally unwell/tired/weak but has not noticed any right versus left sided asymmetry to his strength. Denies sensory changes. No known tick bites or insect bites. He sees [facility] Toni for his care and has had his cardiac care from Dr. Leiva, records have been requested and record request is on his chart however med records are unfortunately closed for Easter and on-call service looped back on voice change without ability to obtain records at time of admit Medical History: Reviewed Medications: Reviewed Surgical History: Reviewed Family history: Reviewed Allergies: Reviewed Social History: no tobacco or etoh Code Status: DNR Allergies Allergy/AdvReac Type Severity Reaction Status Date / Time No Known Allergies Allergy Unverified 02/09/24 11:37 Home Medications Medication Instructions Recorded Confirmed Type Caltrate with Vitamin D3 600 mg PO PM 02/09/24 02/09/24 History Vitamin D3 2,000 mcg PO DAILY 02/09/24 02/09/24 History aspirin 81 mg PO DAILY 02/09/24 02/09/24 History cyanocobalamin (vitamin B-12) 1,000 mcg PO DAILY 02/09/24 02/09/24 History 1,000 mcg sublingual tablet diltiazem HCl 120 mg 120 mg PO DAILY 02/09/24 02/09/24 History capsule,extended release 24 hr (Cardizem CD) docusate calcium 240 mg PO PM 02/09/24 02/09/24 History doxycycline hyclate 100 mg tablet 100 mg PO BID 02/09/24 02/09/24 History (LymePak) ibandronate 150 mg tablet 150 mg PO MONTHLY 02/09/24 02/09/24 History iron 65 mg PO [id number] 02/09/24 02/09/24 History pravastatin 80 mg tablet 80 mg PO PM 02/09/24 02/09/24 History Past Med/Surg History Medical History (Updated 02/09/24 @ 15:31 by Mars Nassar MD) Hypertension Atrial fibrillation Social History Smoking Status: Former smoker Tobacco Type: Cigarettes Preferred Language: Turkish Feels Safe at Home: Yes Physical Exam Physical Exam: General: A&Ox3. NAD. Cooperative. HEENT: Atraumatic, normocephalic. Vision/hearing intact Pulm: CTAB A&P. -wheezes, -rales, -rhonchi. Symmetrical chest rise. No increased work of breathing. No respiratory distress. Cardiac: RRR, trace sm. Radial pulses intact and symmetrical. Abdominal: Nontender, nondistended, soft. BS present. Ext: warm, dry. No rash Results & Data Results & Data Vital Signs (Past 12 Hours) Vital Signs Temp Pulse Pulse Resp BP BP Pulse Ox 02/09/24 15:11 92 H 20 124/88 98 02/09/24 12:37 110 H 20 117/69 95 02/09/24 10:29 36.8 C 100 H 20 141/95 H 93 02/09/24 10:27 102 H O2 Del Method 02/09/24 15:11 Room Air 02/09/24 12:37 Room Air 02/09/24 10:29 Room Air 02/09/24 10:27 PG Care Time/CCT Total # of Minutes Spent Total Time Spent with Patient: Total time spent is greater than 50% in coordination of care (as documented) at patient's floor/unit and/or counseling patient: Coding Level of Care Code 96471 INT INP/OBS CARE 3/75MIN Diagnoses Lymphopenia D72.810 NSTEMI (non-ST elevated myocardial infarction) I21.4 Atrial fibrillation I48.91 Hypertension I10
[2024-02-09] MEDS: ASPIRIN CHEW 324 MG PO STA (15:39)
[2024-02-09 16:02] LABS: Partial Thromboplastin Ratio 1.1; Partial Thromboplastin Time 32 Seconds (21-31)
[2024-02-09] MEDS: HEPARIN SOD (PORCINE) 1000 UNIT/ML IV ONE (16:17)
[2024-02-09] MEDS: HEPARIN SODIUM/DEXTROSE 25,000 UNITS/500 ML BAG IV SCH (16:17)
[2024-02-09] MEDS: Heparin IV Adult Wt-Based Low-Dose w/ INITIAL Bolus Protocol IV STA (16:21)
--- NOTE | 2024-02-09 17:04 | XCELERA ---
[id number] \\[id number]
[2024-02-09] MEDS: DOXYCYCLINE HYCLATE 100 MG in DEXTROSE 5% MINI-B 100 ML IV SCH (17:34)
[2024-02-09] MEDS: CALCIUM 600MG + VIT D 400 IU TAB PO SCH (20:25)
[2024-02-09] MEDS: PRAVASTATIN SOD 40 MG TAB PO SCH (20:25)
[2024-02-09 23:23] LABS: ANTI-Xa, UFH(UnfractionatedHep 0.28 IU/ml (0.3-0.7)
[2024-02-10] MEDS: ACETAMINOPHEN 325 MG TAB PO PRN (00:18)
[2024-02-10] MEDS: METOPROLOL TARTRATE 1 MG/ML VIAL IV PRN (00:21)
[2024-02-10 06:43] LABS: Basophils # (auto) 0.05 K/uL (0.00-0.20); Basophils % (auto) 0.7 %; Eosinophils # (auto) 0.02 K/uL (0.00-0.50); Eosinophils % (auto) 0.3 %; Hematocrit (blood only) 36.1 % (42.0-52.0); Hemoglobin 12.5 g/dl (14.0-18.0); Immature Granulocytes # (auto) 0.02 K/uL (0.01-0.20); Immature Granulocytes % (auto) 0.3 %; Lymphocytes # (auto) 0.89 K/uL (1.20-3.40); Lymphocytes % (auto) 12.2 %; Mean Corpuscular Hemoglobin 31.8 pg (25.0-34.0); Mean Corpuscular Hgb Conc 34.6 g/dL (32.0-36.0); Mean Corpuscular Volume 91.9 fL (80.0-100.0); Mean Platelet Volume 11.6 fL (9.4-12.4); Monocytes # (auto) 0.94 K/uL (0.11-0.59); Monocytes % (auto) 12.9 %; Neutrophils # (auto) 5.38 K/uL (1.40-6.50); Neutrophils % (auto) 73.6 %; Platelet Count 151 K/uL (130-400); RDW Coefficient of Variation 13.4 % (11.5-14.5); RDW Standard Deviation 45.8 fL (36.4-46.3); Red Blood Count 3.93 M/uL (4.70-6.10)
[2024-02-10 07:08] LABS: Albumin Globulin Ratio 1.4 (0.9-2); Albumin Level 3.8 gm/dl (3.4-5.0); BUN Creatinine Ratio 17.7 (10-20); Bilirubin,Total 0.7 mg/dl (0.2-1.0); Calcium 8.9 mg/dl (8.6-10.3); Est GFR (African American) 71.3 ml/min; Est GFR (Non-African American) 61.5 ml/min; Globulin 2.7 gm/dl (2.5-4.0); Total Protein 6.5 gm/dl (6.0-8.3)
[2024-02-10 07:18] LABS: Troponin I High Sensitivity 457.1 pg/ml (0-20)
[2024-02-10 07:25] LABS: ANTI-Xa, UFH(UnfractionatedHep 0.29 IU/ml (0.3-0.7)
[2024-02-10] MEDS: dilTIAZem HCL 120 MG CAPCR PO SCH (08:15)
[2024-02-10] MEDS: CHOLECALCIFEROL 25 MCG (1000 UNITS) TAB PO SCH (08:15)
[2024-02-10] MEDS: ASPIRIN 81 MG ECTAB PO SCH (08:15)
--- NOTE | 2024-02-10 08:18 | Hospitalist Progress Note ---
Date of Service February 10, 2024 Assessment & Plan (1) NSTEMI (non-ST elevated myocardial infarction): Plan: NSTEMI Without chest pain/chest pressure, is with underlying history of A-fib status post watchman and appears to be in a flutter on admission Demand ischemia CTA is without evidence of PE. 3.4 cm infrarenal abdominal aortic aneurysm is noted, patient is aware of this and reports he has this followed annually and has been stable less than 4 cm Heparinize given uptrending troponins - Echo nl EF, severe concentric LVH, no RWMA, does have elevated right heart pressures History of CAD Reportedly with PCI and 2 stents, records pending from [facility]. Sees Dr. prince. Denies hx of heart failure Continue Cardizem Pravastatin 80 mg continued, Continue aspirin, recieved full dose on admit (2) Metabolic encephalopathy: Plan: Chills, weakness cannot get up, no defined source at the present ? Tickborne versus viral. Respiratory bio fire was neg 02/08/2024, patient does not have cough/pulmonary symptoms. No etoh use. CXR clear. No signs of cellulitis No signs of pneumonia, no urinary symptoms Initial Lyme screen was negative, Anaplasma/Babesia/extended tick panel/DNA PCR is pending Continue empiric doxycycline Blood cultures pending, urine culture pending Patient does not appear septic (3) Atrial fibrillation: Plan: S/p watchman.? Flutter on admitting EKG rate control Follow on telemetry, metoprolol IV available on-call if needed Plan Chronic stable issues: Osteoporosis: Has been on outpatient bisphosphonate, no acute change in management DVT prophylaxis: Heparinized Diet: Heart healthy CODE STATUS: DNR/ Admission and Anticipated Discharge Date Admission Date: February 09, 2024 Subjective this pt feels weakened and tired brother at bedside and updated infromed on n stemi, lv fxn normal Physical Exam Physical Exam: awake and alert cardiac is regular slight KYRIE lungs are clear Results & Data Results & Data Vital Signs (Past 12 Hours) Vital Signs Temp Pulse Pulse Resp BP BP Pulse Ox 02/10/24 07:29 98.6 F 91 H 18 128/80 94 02/10/24 03:45 98.2 F 112 H 18 102/67 92 02/10/24 00:36 120 H 139/88 02/10/24 00:21 116 H 162/96 H 02/10/24 00:19 116 H 162/96 H 02/09/24 23:11 95 H 02/09/24 21:53 98.2 F 98 H 18 165/91 H 95 02/09/24 20:44 97.5 F L 96 H 19 136/87 95 02/09/24 20:18 83 19 123/87 98 O2 Del Method 02/10/24 07:29 Room Air 02/10/24 03:45 Room Air 02/10/24 00:36 02/10/24 00:21 02/10/24 00:19 02/09/24 23:11 02/09/24 21:53 Room Air 02/09/24 20:44 Room Air 02/09/24 20:18 Room Air Laboratory Results review cbc review chemistry review troponin PG Care Time/CCT Total # of Minutes Spent Total Time Spent with Patient: Total time spent is greater than 50% in coordination of care (as documented) at patient's floor/unit and/or counseling patient: Coding Level of Care Code 02085 SUB INP/OBS CARE 3/50MIN Diagnoses NSTEMI (non-ST elevated myocardial infarction) I21.4 Metabolic encephalopathy G93.41 Atrial fibrillation I48.91
--- NOTE | 2024-02-10 16:48 | Cardiology Consultation ---
Date of Consultation February 10, 2024 Assessment & Plan (1) Atrial fibrillation: (2) Coronary artery disease: Plan 1. Atrial fibrillation: I cannot tell from his history whether he is in permanent atrial fibrillation (which I suspect) or paroxysmal, his heart rate seems more elevated now than what he tells me at home but he also tells me that whenever he has an electrocardiogram they tell him he is in atrial fibrillation so that makes it sound more permanent. It does not matter too much, he does not need anticoagulation since he has a watchman in place and his heart rate seems well-controlled on his current regimen. 2. Coronary disease: He has known coronary artery disease, he does not get exertional angina but he does get exertional shortness of breath and fatigue. I am not sure whether this is an anginal equivalent or not. His troponin was fairly high, however the pattern is more consistent with demand ischemia and since we know he has underlying coronary disease I would not be inclined to pursue evaluation of it at this time. History of Present Illness Reason for Consultation: Atrial fibrillation, coronary artery disease Attending Physician: Sammy Bond MD History of Present Illness This is a complex gentleman who has not been here at our institution until recently, he typically follows with [facility] and lives near [place].. He is a 78-year-old male with a history of atrial fibrillation for which he has a watchman in place, he also has hypertension, hyperlipidemia and an abdominal aortic aneurysm as well as coronary disease for which he has had PCI in 2006 and 2008. He presented with generalized weakness and falling on February 08, 2024 and fell. His electrocardiogram from February 08, 2024 at 1116 looks like atrial fibrillation with a heart rate of 105 bpm, on February 09, 2024 it is very similar at 112 bpm. He is being evaluated for an infection, he did have a CTA without evidence for pulmonary emboli. This admission he did have serial cardiac enzymes which have been elevated, on presentation February 09, 2024 at 1025 his high sensitive troponin was 676, that peaked 3 hours later at 907 and then decreased from there, being 364 February 10, 2024 at 1152. This is more suggestive of demand ischemia than a cardiovascular event. I was able to talk to him in his room with his family present. He does not seem very aware whether he is in atrial fibrillation or not, I cannot tell if he is in permanent atrial fibrillation or if it is paroxysmal. He tells me however that his heart rate is usually in the high 50s or 60 bpm, significantly lower than what we are experiencing here. That could be stress however. 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 He does get short of breath with exertion. He has not had cardiovascular symptoms in the hospital. Allergies Allergy/AdvReac Type Severity Reaction Status Date / Time No Known Allergies Allergy Unverified 02/09/24 11:37 Home Medications Medication Instructions Recorded Confirmed Type Caltrate with Vitamin D3 600 mg PO PM 02/09/24 02/09/24 History Vitamin D3 2,000 mcg PO DAILY 02/09/24 02/09/24 History aspirin 81 mg PO DAILY 02/09/24 02/09/24 History cyanocobalamin (vitamin B-12) 1,000 mcg PO DAILY 02/09/24 02/09/24 History 1,000 mcg sublingual tablet diltiazem HCl 120 mg 120 mg PO DAILY 02/09/24 02/09/24 History capsule,extended release 24 hr (Cardizem CD) docusate calcium 240 mg PO PM 02/09/24 02/09/24 History doxycycline hyclate 100 mg tablet 100 mg PO BID 02/09/24 02/09/24 History (LymePak) ibandronate 150 mg tablet 150 mg PO MONTHLY 02/09/24 02/09/24 History iron 65 mg PO [id number] 02/09/24 02/09/24 History pravastatin 80 mg tablet 80 mg PO PM 02/09/24 02/09/24 History Patient History Medical History (Updated 02/10/24 @ 17:37 by Ritesh Olsen MD) Atrial fibrillation Coronary artery disease AAA (abdominal aortic aneurysm) Hypertension Surgical History History of heart artery stent Social History Smoking Status: Never smoker Tobacco Type: Cigarettes Hx Alcohol Use: No Hx Substance Use: No Preferred Language: Ukrainian Communication Ability: Effective [employer] Required: No Beliefs That Will Affect Care: None Current Living Situation: Family Feels Safe at Home: Yes Assistive Devices: None Review of Systems Review of Systems: All systems reviewed & are unremarkable except as noted in HPI & below Physical Exam Physical Exam: Constitutional: Alert, cooperative and in no distress. He is sitting in bed. HEENT: Unremarkable Neck: No jugular venous distention, carotid pulses are irregular but otherwise normal and equal bilaterally without bruits. Pulmonary: Clear to auscultation bilaterally. Cardiac: Irregular rhythm with no murmur, gallop or rub. Abdomen: Soft, nontender with normal bowel sounds. Extremities: No edema. Neurologic: No focal findings. Skin: No rash, ecchymoses or petechiae. Results & Data Vital Signs (Past 12 Hours) Vital Signs Temp Pulse Resp BP Pulse Ox O2 Del Method 02/10/24 15:00 36.7 C 86 16 112/70 92 Room Air 02/10/24 11:04 36.6 C 91 H 116/73 93 Room Air 02/10/24 07:29 37.0 C 91 H 18 128/80 94 Room Air Laboratory Results Cardiac Enzymes 02/09/24 02/10/24 02/10/24 Range/Units 22:20 06:19 11:52 AST 18 (13-39) U/L Troponin I High Sens 562.7 H* D 457.1 H* 364.1 H* D (0-20) pg/ml CBC 02/10/24 Range/Units 06:19 WBC 7.30 (4.8-10.8) K/ul RBC 3.93 L (4.70-6.10) M/uL Hgb 12.5 L (14.0-18.0) g/dl Hct 36.1 L (42.0-52.0) % Plt Count 151 (130-400) K/uL Neut # (Auto) 5.38 (1.40-6.50) K/uL Lymph # (Auto) 0.89 L (1.20-3.40) K/uL [place] # (Auto) 0.94 H (0.11-0.59) K/uL Eos # (Auto) 0.02 (0.00-0.50) K/uL Baso # (Auto) 0.05 (0.00-0.20) K/uL Comprehensive Metabolic Panel 02/10/24 Range/Units 06:19 Sodium 137 (136-145) mmol/L Potassium 4.0 (3.5-5.1) mmol/L Chloride 106 (98-107) mmol/L Carbon Dioxide 24 (21-32) mmol/L BUN 20 (6-23) mg/dl Creatinine 1.13 (0.6-1.4) mg/dl Glucose 109 H (70-99(Fasting)) mg/dl Calcium 8.9 (8.6-10.3) mg/dl AST 18 (13-39) U/L ALT 9 (7-52) U/L Alkaline Phosphatase 47 (34-104) U/L Total Protein 6.5 (6.0-8.3) gm/dl Albumin 3.8 (3.4-5.0) gm/dl Intake and Output 02/10/24 02/10/24 02/10/24 06:59 14:59 22:59 Intake Total 213.467 / 2006.467 776 / 906.533 130.533 / 906.533 Output Total 400 / 900 400 / 400 Balance -186.533 / 1106.467 376 / 506.533 130.533 / 506.533 Intake: IV 213.467 / 1766.467 256 / 386.533 130.533 / 386.533 Doxycycline Hyclate 100 mg In 100 / 100 Dextrose 5% Mini-B 100 ml @ 50 mls/hr IV Q12H [facility] Rx#:[id number] Heparin Sodium/Dextrose 25,000 213.467 / 213.467 156 / 286.533 130.533 / 286.533 units In 500 ml @ 1,000 UNITS/ HR 20 mls/hr IV .Q24H [facility] Rx#: [id number] Oral 520 / 520 Output: Urine 400 / 900 400 / 400 Diagnostic Findings Telemetry: Atrial fibrillation, initially faster after admission and now averaging in the 80 bpm range. PG Care Time/CCT Total # of Minutes Spent Total Time Spent with Patient: Total time spent is greater than 50% in coordination of care (as documented) at patient's floor/unit and/or counseling patient: Coding Level of Care Code 10881 INT INP/OBS CARE 3/75MIN Diagnoses Chronic atrial fibrillation I48.20 Atrial fibrillation type: unspecified chronic Coronary artery disease I25.10 (1) Atrial fibrillation Atrial fibrillation type: unspecified chronic Qualified Code(s): I48.20 - Chronic atrial fibrillation, unspecified
[2024-02-10 18:10] LABS: ANTI-Xa, UFH(UnfractionatedHep 0.26 IU/ml (0.3-0.7)
[2024-02-11 00:50] LABS: ANTI-Xa, UFH(UnfractionatedHep 0.32 IU/ml (0.3-0.7)
[2024-02-11 08:27] LABS: Basophils # (auto) 0.03 K/uL (0.00-0.20); Basophils % (auto) 0.4 %; Eosinophils # (auto) 0.06 K/uL (0.00-0.50); Eosinophils % (auto) 0.9 %; Hematocrit (blood only) 38.3 % (42.0-52.0); Hemoglobin 13.2 g/dl (14.0-18.0); Immature Granulocytes # (auto) 0.03 K/uL (0.01-0.20); Immature Granulocytes % (auto) 0.4 %; Lymphocytes # (auto) 0.89 K/uL (1.20-3.40); Lymphocytes % (auto) 12.7 %; Mean Corpuscular Hemoglobin 31.4 pg (25.0-34.0); Mean Corpuscular Hgb Conc 34.5 g/dL (32.0-36.0); Mean Corpuscular Volume 91.2 fL (80.0-100.0); Mean Platelet Volume 12.1 fL (9.4-12.4); Monocytes # (auto) 0.76 K/uL (0.11-0.59); Monocytes % (auto) 10.9 %; Neutrophils # (auto) 5.22 K/uL (1.40-6.50); Neutrophils % (auto) 74.7 %; Platelet Count 181 K/uL (130-400); RDW Coefficient of Variation 13.4 % (11.5-14.5); RDW Standard Deviation 44.8 fL (36.4-46.3); White Blood Count 6.99 K/ul (4.8-10.8)
[2024-02-11 08:45] LABS: ANTI-Xa, UFH(UnfractionatedHep 0.33 IU/ml (0.3-0.7)
[2024-02-11 09:21] LABS: Albumin Globulin Ratio 1.4 (0.9-2); Albumin Level 3.8 gm/dl (3.4-5.0); BUN Creatinine Ratio 17.1 (10-20); Bilirubin,Total 0.7 mg/dl (0.2-1.0); Creatinine Clr Calc Pharmacy 51.2 ml/min; Est GFR (African American) 68.3 ml/min; Est GFR (Non-African American) 58.9 ml/min; Globulin 2.8 gm/dl (2.5-4.0); Potassium 3.8 mmol/L (3.5-5.1); Total Protein 6.6 gm/dl (6.0-8.3)
--- NOTE | 2024-02-11 12:42 | Hospitalist Progress Note ---
Date of Service February 11, 2024 Assessment & Plan (1) NSTEMI (non-ST elevated myocardial infarction): Plan: NSTEMI Without chest pain/chest pressure, is with underlying history of A-fib status post watchman and appears to be in a flutter on admission Demand ischemia CTA is without evidence of PE. 3.4 cm infrarenal abdominal aortic aneurysm is noted, patient is aware of this and reports he has this followed annually and has been stable less than 4 cm Discontinue heparin per cardiology's recommendations of no anticoagulation is needed - Echo nl EF, severe concentric LVH, no RWMA, does have elevated right heart pressures History of CAD Reportedly with PCI and 2 stents, records pending from [facility]. Sees Dr. prince. Denies hx of heart failure Continue Cardizem Pravastatin 80 mg continued, Continue aspirin, recieved full dose on admit (2) Metabolic encephalopathy: Plan: Chills, weakness cannot get up, no defined source at the present ? Tickborne versus viral. Respiratory bio fire was neg 02/08/2024, patient does not have cough/pulmonary symptoms. No etoh use. CXR clear. No signs of cellulitis No signs of pneumonia, no urinary symptoms Initial Lyme screen was negative, Anaplasma/Babesia/extended tick panel/DNA PCR is pending Continue empiric doxycycline Blood cultures pending, urine culture polymicrobial Patient does not appear septic (3) Atrial fibrillation: Plan: S/p watchman.? 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 Exam Physical Exam: Patient awake and alert he is oriented Card exam is regular there is a faint systolic murmur Lungs are clear Abdomen NABS soft nontender no focal complaints Results & Data Results & Data Vital Signs (Past 12 Hours) Vital Signs Temp Pulse Pulse Resp BP Pulse Ox O2 Del Method 02/11/24 12:20 97.7 F 77 18 100/61 92 Room Air 02/11/24 09:00 Room Air 02/11/24 07:33 99.0 F 92 H 18 113/63 92 Room Air 02/11/24 07:24 102 H 02/11/24 02:36 98.4 F 92 H 18 136/80 94 Room Air Laboratory Results Reviewed CBC reviewed chemistry Reviewed [id number] glucose PG Care Time/CCT Total # of Minutes Spent Total Time Spent with Patient: Total time spent is greater than 50% in coordination of care (as documented) at patient's floor/unit and/or counseling patient: Coding Level of Care Code 43107 SUB INP/OBS CARE 235MIN Diagnoses NSTEMI (non-ST elevated myocardial infarction) I21.4 Metabolic encephalopathy G93.41 Chronic atrial fibrillation I48.20 Atrial fibrillation type: unspecified chronic (3) Atrial fibrillation Atrial fibrillation type: unspecified chronic Qualified Code(s): I48.20 - Chronic atrial fibrillation, unspecified
[2024-02-12 07:36] LABS: Basophils # (auto) 0.03 K/uL (0.00-0.20); Basophils % (auto) 0.4 %; Eosinophils # (auto) 0.12 K/uL (0.00-0.50); Eosinophils % (auto) 1.7 %; Hemoglobin 12.4 g/dl (14.0-18.0); Immature Granulocytes # (auto) 0.03 K/uL (0.01-0.20); Immature Granulocytes % (auto) 0.4 %; Lymphocytes # (auto) 0.95 K/uL (1.20-3.40); Lymphocytes % (auto) 13.2 %; Mean Corpuscular Hemoglobin 31.2 pg (25.0-34.0); Mean Corpuscular Hgb Conc 34.4 g/dL (32.0-36.0); Mean Corpuscular Volume 90.7 fL (80.0-100.0); Mean Platelet Volume 11.6 fL (9.4-12.4); Monocytes # (auto) 1.04 K/uL (0.11-0.59); Monocytes % (auto) 14.4 %; Neutrophils # (auto) 5.03 K/uL (1.40-6.50); Neutrophils % (auto) 69.9 %; Platelet Count 166 K/uL (130-400); RDW Coefficient of Variation 13.2 % (11.5-14.5); RDW Standard Deviation 44.3 fL (36.4-46.3); Red Blood Count 3.97 M/uL (4.70-6.10)
[2024-02-12 08:17] LABS: Albumin Globulin Ratio 1.3 (0.9-2); Albumin Level 3.6 gm/dl (3.4-5.0); BUN Creatinine Ratio 17.7 (10-20); Bilirubin,Total 0.7 mg/dl (0.2-1.0); Calcium 8.9 mg/dl (8.6-10.3); Creatinine Clr Calc Pharmacy 48.3 ml/min; Est GFR (African American) 63.7 ml/min; Est GFR (Non-African American) 54.9 ml/min; Globulin 2.8 gm/dl (2.5-4.0); Total Protein 6.4 gm/dl (6.0-8.3)
--- NOTE | 2024-02-12 10:32 | Hospitalist Progress Note ---
Date of Service February 12, 2024 Assessment & Plan (1) NSTEMI (non-ST elevated myocardial infarction): Plan: NSTEMI Without chest pain/chest pressure, is with underlying history of A-fib status post watchman and appears to be in a flutter on admission Demand ischemia *NSTEMI *Demand ischemia CTA is without evidence of PE. 3.4 cm infrarenal abdominal aortic aneurysm is noted, patient is aware of this and reports he has this followed annually and has been stable less than 4 cm Discontinue heparin per cardiology's recommendations of no anticoagulation is needed - Echo nl EF, severe concentric LVH, no RWMA, does have elevated right heart pressures History of CAD Reportedly with PCI and 2 stents, records pending from [facility]. Sees Dr. prince. Denies hx of heart failure discontinue cardizem as he has lower blood pressure Pravastatin 80 mg discontinued incase this is statin related Continue aspirin, received full dose on admit (2) Metabolic encephalopathy: Plan: Chills, weakness cannot get up, no defined source at the present ? Tickborne versus viral. Respiratory bio fire was neg 02/08/2024, patient does not have cough/pulmonary symptoms. No etoh use. CXR clear. No signs of cellulitis No signs of pneumonia, no urinary symptoms Initial Lyme screen was negative, Anaplasma/Babesia/extended tick panel/DNA PCR is pending Continue empiric doxycycline Blood cultures pending, urine culture polymicrobial Patient does not appear septic will try dose of thiamine and see if he is improved (3) Atrial fibrillation: Plan: S/p watchman.? Flutter on admitting EKG rate control Follow on telemetry, metoprolol IV available on-call if needed Plan Chronic stable issues: Osteoporosis: Has been on outpatient bisphosphonate, no acute change in management DVT prophylaxis: Heparinized Diet: Heart healthy CODE STATUS: DNR/ Admission and Anticipated Discharge Date Admission Date: February 09, 2024 Subjective Patient is difficult to understand how he is actually feeling. He says he is not feeling well today however he says he has not been feeling well for months at home. He says he cannot give me a direct month or time that it started but gradually he has been feeling worse since September. I think that is why they began to consider tickborne illness as he is was [place] in the park part-time at that time he has no focal complaints of any kind just feels weak and wants to sleep and rest all the time Physical Exam Physical Exam: He is alert and oriented. Neurological exam is nonfocal, reflexes are brisk Card exam is regular there are no murmurs she is no JVD he has no peripheral edema His lungs are clear without wheezes or crackles Results & Data Results & Data Vital Signs (Past 12 Hours) Vital Signs Temp Pulse Pulse Resp BP Pulse Ox O2 Del Method 02/12/24 09:00 Room Air 02/12/24 08:20 98.1 F 89 18 106/67 92 Room Air 02/12/24 07:00 83 02/12/24 02:52 98.1 F 78 20 138/78 96 Room Air 02/12/24 01:27 79 02/11/24 22:50 73 20 Laboratory Results Cortisol checked this morning was normal T4 checked (TSH was normal) was also normal Patient is not anemic Echocardiogram shows preserved ejection fraction did have evidence of NSTEMI but has improved Electrolytes are normal range with exception of phosphorus being low PG Care Time/CCT Total # of Minutes Spent Total Time Spent with Patient: Total time spent is greater than 50% in coordination of care (as documented) at patient's floor/unit and/or counseling patient: Coding Level of Care Code 23316 SUB INP/OBS CARE 2/35MIN Diagnoses NSTEMI (non-ST elevated myocardial infarction) I21.4 Metabolic encephalopathy G93.41 Chronic atrial fibrillation I48.20 Atrial fibrillation type: unspecified chronic (3) Atrial fibrillation Atrial fibrillation type: unspecified chronic Qualified Code(s): I48.20 - Chronic atrial fibrillation, unspecified
--- NOTE | 2024-02-12 12:54 | Electrocardiogram Report ---
Test Reason : Blood Pressure : / mmHG Vent. Rate : 112 BPM Atrial Rate : 000 BPM P-R Int : 000 ms QRS Dur : 088 ms QT Int : 330 ms P-R-T Axes : 000 032 046 degrees QTc Int : 450 ms Atrial fibrillation with rapid ventricular response with premature ventricular or aberrantly conducte d complexes Nonspecific ST and T wave abnormality Abnormal ECG When compared with ECG of 08-FEB-2024 11:16, (unconfirmed) Nonspecific T wave abnormality now evident in Anterior leads Confirmed by Ritesh Olsen ([id number]) on 02/12/2024 12:54:44 PM Referred By: Confirmed By:Ritesh Olsen
--- NOTE | 2024-02-12 13:17 | Electrocardiogram Report ---
Test Reason : Blood Pressure : / mmHG Vent. Rate : 133 BPM Atrial Rate : 129 BPM P-R Int : 000 ms QRS Dur : 090 ms QT Int : 310 ms P-R-T Axes : 000 041 067 degrees QTc Int : 461 ms Atrial fibrillation with rapid ventricular response Abnormal ECG When compared with ECG of 09-FEB-2024 10:22, (unconfirmed) ST now depressed in Anterior leads Confirmed by Ritesh Olsen ([id number]) on 02/12/2024 1:16:58 PM Referred By: Mike Blanco Confirmed By:Ritesh Olsen
--- NOTE | 2024-02-12 14:03 | Cardiology Progress Note ---
Date of Service February 12, 2024 Assessment & Plan (1) Atrial fibrillation: (2) Coronary artery disease: Plan 1. Atrial fibrillation: I cannot tell from his history whether he is in permanent atrial fibrillation (which I suspect) or paroxysmal, his heart rate was more elevated on presentation than what he tells me it is at home but now that he is recovering his heart rate is better controlled although still higher than what he describes at home. It does not matter too much, he does not need anticoagulation since he has a watchman in place and his heart rate seems adequately controlled on his current regimen. 2. Coronary disease: He has known coronary artery disease, he does not get exertional angina but he does get exertional shortness of breath and fatigue. I am not sure whether this is an anginal equivalent or not. His troponin was fairly high, however the pattern is more consistent with demand ischemia and since we know he has underlying coronary disease I would not be inclined to pursue evaluation of it at this time. Admission and Anticipated Discharge Date Admission Date: February 09, 2024 Subjective He is feeling quite well today, he has no cardiovascular symptoms (he has no awareness of his cardiac rhythm). He has not been very active but is sitting in his chair. Physical Exam Physical Exam: Constitutional: Alert, cooperative and in no distress. He is sitting in bed. HEENT: Unremarkable Neck: No jugular venous distention, carotid pulses are irregular but otherwise normal and equal bilaterally without bruits. Pulmonary: Clear to auscultation bilaterally. Cardiac: Irregular rhythm with no murmur, gallop or rub. Abdomen: Soft, nontender with normal bowel sounds. Extremities: No edema. Neurologic: No focal findings. Skin: No rash, ecchymoses or petechiae. Results & Data Vital Signs (Past 12 Hours) Vital Signs Temp Pulse Pulse Resp BP Pulse Ox O2 Del Method 02/12/24 11:50 36.8 C 89 18 104/56 L 94 Room Air 02/12/24 09:00 Room Air 02/12/24 08:20 36.7 C 89 18 106/67 92 Room Air 02/12/24 07:00 83 02/12/24 02:52 36.7 C 78 20 138/78 96 Room Air Laboratory Results Cardiac Enzymes 02/12/24 Range/Units 06:56 AST 19 (13-39) U/L CBC 02/12/24 Range/Units 06:56 WBC 7.20 (4.8-10.8) K/ul RBC 3.97 L (4.70-6.10) M/uL Hgb 12.4 L (14.0-18.0) g/dl Hct 36.0 L (42.0-52.0) % Plt Count 166 (130-400) K/uL Neut # (Auto) 5.03 (1.40-6.50) K/uL Lymph # (Auto) 0.95 L (1.20-3.40) K/uL [place] # (Auto) 1.04 H (0.11-0.59) K/uL Eos # (Auto) 0.12 (0.00-0.50) K/uL Baso # (Auto) 0.03 (0.00-0.20) K/uL Comprehensive Metabolic Panel 02/12/24 Range/Units 06:56 Sodium 136 (136-145) mmol/L Potassium 4.0 (3.5-5.1) mmol/L Chloride 103 (98-107) mmol/L Carbon Dioxide 25 (21-32) mmol/L BUN 22 (6-23) mg/dl Creatinine 1.24 (0.6-1.4) mg/dl Glucose 114 H (70-99(Fasting)) mg/dl Calcium 8.9 (8.6-10.3) mg/dl AST 19 (13-39) U/L ALT 15 (7-52) U/L Alkaline Phosphatase 42 (34-104) U/L Total Protein 6.4 (6.0-8.3) gm/dl Albumin 3.6 (3.4-5.0) gm/dl Intake and Output 02/11/24 02/12/24 02/12/24 22:59 06:59 14:59 Intake Total 120 / 670.8 240 / 240 Output Total 300 / 1000 650 / 1000 200 / 200 Balance -300 / -329.2 -530 / -329.2 40 / 40 Intake: Oral 120 / 120 240 / 240 Output: Urine 300 / 1000 650 / 1000 200 / 200 Other: # Unmeasured Voids 1 Weight 84.1 kg Diagnostic Findings Telemetry: Atrial fibrillation with intermittent ventricular pacing, rate well- controlled. PG Care Time/CCT Total # of Minutes Spent Total Time Spent with Patient: Total time spent is greater than 50% in coordination of care (as documented) at patient's floor/unit and/or counseling patient: Coding Level of Care Code 89610 SUB INP/OBS CARE 2/35MIN Diagnoses Chronic atrial fibrillation I48.20 Atrial fibrillation type: unspecified chronic Coronary artery disease I25.10 (1) Atrial fibrillation Atrial fibrillation type: unspecified chronic Qualified Code(s): I48.20 - Chronic atrial fibrillation, unspecified
[2024-02-12] MEDS: THIAMINE HCL 200 MG in SODIUM CHLORIDE 0.9% 50 ML IV STA (14:16)
[2024-02-12] MEDS ORDERED: hydrALAZINE HCL 20 MG/ML VIAL IV PRN (14:50)
[2024-02-12] MEDS ORDERED: SODIUM PHOSPHATE 3 MMOL/1 ML INFUSION IV STA (14:57)
[2024-02-12] MEDS: SODIUM PHOSPHATE 15 MMOL in SODIUM CHLORIDE 0.9% 250 ML IV ONE (15:42)
[2024-02-12 19:27] LABS: Parvovirus B19 Qual Source Serum; Parvovirus B19 Qualitative Not Detected (Not Detected)
--- NOTE | 2024-02-13 22:32 | Hospitalist Progress Note ---
Date of Service February 13, 2024 Assessment & Plan (1) NSTEMI (non-ST elevated myocardial infarction): Plan: NSTEMI Without chest pain/chest pressure, is with underlying history of A-fib status post watchman and appears to be in a flutter on admission Demand ischemia *NSTEMI *Demand ischemia CTA is without evidence of PE. 3.4 cm infrarenal abdominal aortic aneurysm is noted, patient is aware of this and reports he has this followed annually and has been stable less than 4 cm Discontinue heparin per cardiology's recommendations of no anticoagulation is needed - Echo nl EF, severe concentric LVH, no RWMA, does have elevated right heart pressures History of CAD Reportedly with PCI and 2 stents, records pending from [facility]. Sees Dr. prince. Denies hx of heart failure discontinue cardizem as he has lower blood pressure Pravastatin 80 mg discontinued incase this is statin related Continue aspirin, received full dose on admit (2) Metabolic encephalopathy: Plan: Chills, weakness cannot get up, no defined source at the present ? Tickborne versus viral. Respiratory bio fire was neg 02/08/2024, patient does not have cough/pulmonary symptoms. No etoh use. CXR clear. No signs of cellulitis No signs of pneumonia, no urinary symptoms Initial Lyme screen was negative, Anaplasma/Babesia/extended tick panel/DNA PCR is pending Continue empiric doxycycline Blood cultures pending, urine culture polymicrobial Patient does not appear septic will try dose of thiamine and see if he is improved Consulted neurology. awaiting input. (3) Atrial fibrillation: Plan: S/p watchman.? Flutter on admitting EKG rate control Follow on telemetry, metoprolol IV available on-call if needed Plan Chronic stable issues: Osteoporosis: Has been on outpatient bisphosphonate, no acute change in management DVT prophylaxis: Heparinized Diet: Heart healthy CODE STATUS: DNR/ Admission and Anticipated Discharge Date Admission Date: February 09, 2024 Subjective Patient reports no new symptoms. Review of Systems Review of Systems: All systems reviewed & are unremarkable except as noted in HPI & below Physical Exam Physical Exam: He is alert and oriented. Neurological exam is nonfocal, reflexes are brisk Card exam is regular there are no murmurs she is no JVD His lungs are clear without wheezes or crackles Results & Data Results & Data Vital Signs (Past 12 Hours) Vital Signs Temp Pulse Resp BP BP Pulse Ox O2 Del Method 02/13/24 20:00 Room Air 02/13/24 19:14 36.6 C 85 18 129/81 93 Room Air 02/13/24 15:07 36.8 C 96 H 18 119/65 94 Room Air 02/13/24 11:45 36.7 C 72 18 127/83 97 Room Air PG Care Time/CCT Total # of Minutes Spent Total Time Spent with Patient: Total time spent is greater than 50% in coordination of care (as documented) at patient's floor/unit and/or counseling patient: Coding Level of Care Code 34932 SUB INP/OBS CARE 235MIN Diagnoses NSTEMI (non-ST elevated myocardial infarction) I21.4 Metabolic encephalopathy G93.41 Chronic atrial fibrillation I48.20 Atrial fibrillation type: unspecified chronic (3) Atrial fibrillation Atrial fibrillation type: unspecified chronic Qualified Code(s): I48.20 - Chronic atrial fibrillation, unspecified
[2024-02-14 05:13] LABS: BUN Creatinine Ratio 22.1 (10-20); C Reactive Protein 12.89 mg/dl (0-0.5); Calcium 9.3 mg/dl (8.6-10.3); Creatinine Clr Calc Pharmacy 57.6 ml/min; Est GFR (African American) 78.8 ml/min; Potassium 4.1 mmol/L (3.5-5.1)
[2024-02-14 05:17] LABS: Hematocrit (blood only) 36.6 % (42.0-52.0); Hemoglobin 12.7 g/dl (14.0-18.0); Mean Corpuscular Hemoglobin 31.4 pg (25.0-34.0); Mean Corpuscular Hgb Conc 34.7 g/dL (32.0-36.0); Mean Corpuscular Volume 90.6 fL (80.0-100.0); Mean Platelet Volume 11.4 fL (9.4-12.4); Platelet Count 203 K/uL (130-400); RDW Coefficient of Variation 13.2 % (11.5-14.5); RDW Standard Deviation 44.6 fL (36.4-46.3); Red Blood Count 4.04 M/uL (4.70-6.10); White Blood Count 7.51 K/ul (4.8-10.8)
--- NOTE | 2024-02-14 08:49 | Neurology Consultation ---
Date of Consultation February 14, 2024 Assessment & Plan (1) Generalized weakness: History of Present Illness Attending Physician: Lan Fuller History of Present Illness 78 yo male with more than a year hx of having vague generalized weakness, mostly his proximal leg muscles. no problem getting around, he just feels little weak when he exerts and walks too much etc. no back pain associated. no muscle change or atrophy. no need for assisted devices. pt currently inpt for NSTEMI and leukopenia. admission HPI: Bienvenido is a 78-year-old male with past medical history of A-fib/a flutter s/p Watchman device no longer on anticoagulation, CAD reportedly with PCI and stents in approximately 2008 records pending from [facility] who presented to the ER emergency department 02/08/2024 with generalized bodyaches, joint pain, headache, chills, and feeling feverish without measured temperature was noted to be leukopenic at that time. EKG at that time was nonischemic, chest x-ray did not show acute findings, and bio fire was negative. Due to body aches, joint pain, chills with associated leukopenia patient had a extended tickborne panel sent out although initial Lyme screening was negative, was started on empiric doxycycline twice daily. Patient returns 1 day later 02/09/2024 with fatigue, lower extremity bilateral weakness, continued joint aches, and chills. He had no loss of consciousness or head strike. Repeat labs show EKG suspect a flutter without ischemic changes, and checks x- ray was without acute findings. Patient remains leukopenic. Phosphorus was low and repleted. High sensitive troponin was elevated at 670, repeat uptrending at 907. Patient did not have chest pain or shortness of breath at any point preceding admission or on admission. Given his failure to improve, elevated troponin, and overall poor clinical appearance he was recommended for admission and additional monitoring Patient seen at the bedside. He reports that he has had chronic muscle aches and joint pains for many years however these have been completely different in the last 2 to 3 days. Reports he has diffuse joint pains in his hips knees and shoulders, has felt that he has had chills and sweats, although has not had a measured temperature. He has not any chest pain at any point. Denies shortness of breath. Denies cough. Denies sputum production. Denies nausea, vomiting, abdominal pain, diarrhea, constipation. No hematochezia or melena. He has not syncopized. Does feel generally unwell/tired/weak but has not noticed any right versus left sided asymmetry to his strength. Denies sensory changes. No known tick bites or insect bites. He sees [facility] for his care and has had his cardiac care from Dr. Leiva, records have been requested and record request is on his chart however med records are unfortunately closed for Easter and on-call service looped back on voice change without ability to obtain records at time of admit Allergies Allergy/AdvReac Type Severity Reaction Status Date / Time No Known Allergies Allergy Unverified 02/09/24 11:37 Home Medications Medication Instructions Recorded Confirmed Type Caltrate with Vitamin D3 600 mg PO PM 02/09/24 02/09/24 History Vitamin D3 2,000 mcg PO DAILY 02/09/24 02/09/24 History aspirin 81 mg PO DAILY 02/09/24 02/09/24 History cyanocobalamin (vitamin B-12) 1,000 mcg PO DAILY 02/09/24 02/09/24 History 1,000 mcg sublingual tablet diltiazem HCl 120 mg 120 mg PO DAILY 02/09/24 02/09/24 History capsule,extended release 24 hr (Cardizem CD) docusate calcium 240 mg PO PM 02/09/24 02/09/24 History doxycycline hyclate 100 mg tablet 100 mg PO BID 02/09/24 02/09/24 History (LymePak) ibandronate 150 mg tablet 150 mg PO MONTHLY 02/09/24 02/09/24 History iron 65 mg PO 4XWK 02/09/24 02/09/24 History pravastatin 80 mg tablet 80 mg PO PM 02/09/24 02/09/24 History Patient History Medical History (Updated 02/10/24 @ 17:37 by Ritesh Olsen MD) Atrial fibrillation Coronary artery disease AAA (abdominal aortic aneurysm) Hypertension Surgical History History of heart artery stent Social History Smoking Status: Never smoker Tobacco Type: Cigarettes Hx Alcohol Use: No Hx Substance Use: No Preferred Language: Lebanese Communication Ability: Effective Stove Carriage Operator Required: No Beliefs That Will Affect Care: None Current Living Situation: Family Feels Safe at Home: Yes Assistive Devices: None Exam (Neuro) Physical Exam: HEENT: normocephalic Neuro: Mental: AOx4, fluent speech, normal comprehension, no apraxia, no L/R confusion, no neglect CN: PERRL, Full EOM, symmetric face, intact sensation t/o face, midline T/U/P, 5/5 SCM/traps. Motor: No abnormal movements, normal tone and bulk, 5/5 t/o bilaterally upper limbs. b/l LE: 5/5 t/o except 4+/5 rt hip flexion. Sens: intact to touch b/l grossly Coord: intact DTR: 1+ sym b/l Gait: deferred. pt denies problem with walking. Impression: 78 yo male with vague chronic proximal leg weakness that is mostly subjective. No suggestion of NMJ d/o or muscle disorder at this point. most likely decondition/age related changes. Recommendations: no new recommendations. physical therapy perhaps as outpt. call again if new question. Chart reviewed I have spent more than 50% educating patient about potential diagnosis and neurological evaluation and coordinating care with patient's treatment team. Total time spent (including chart review and coordination of care): 45 min (this includes chart review). Results & Data Vital Signs (Past 12 Hours) Vital Signs Temp Pulse Resp BP Pulse Ox O2 Del Method 02/14/24 08:00 37.0 C 78 20 131/74 96 Room Air 02/14/24 02:42 36.6 C 82 18 140/80 95 Room Air 02/13/24 22:53 85 18 PG Care Time/CCT Total # of Minutes Spent Total Time Spent with Patient: Total time spent is greater than 50% in coordination of care (as documented) at patient's floor/unit and/or counseling patient: Coding Level of Care Code 64201 IN/OBS CONSULT LVL 3,45M Diagnoses Generalized weakness R53.1
[2024-02-14] MEDS ORDERED: diphenhydrAMINE 50 MG/ML VIAL IV PRN (11:13)
[2024-02-14] MEDS ORDERED: SODIUM CHLORIDE 0.9% 500 ML IV PRN (11:15)
[2024-02-14] MEDS ORDERED: IMMUNE GLOBULIN (HUMAN) SOLN IV SCH (11:15)
[2024-02-14] MEDS ORDERED: ACETAMINOPHEN 325 MG TAB PO PRN (11:17)
[2024-02-14 16:00] LABS: Phosphorus 3.7 mg/dl (2.5-4.9)
--- NOTE | 2024-02-14 17:27 | Discharge Summary ---
Date of Service February 14, 2024 Admission HPI Per Admitting Provider Bienvenido is a 78-year-old male with past medical history of A-fib/a flutter s/p Watchman device no longer on anticoagulation, CAD reportedly with PCI and stents in approximately 2008 records pending from [facility] who presented to the ER emergency department 02/08/2024 with generalized bodyaches, joint pain, headache, chills, and feeling feverish without measured temperature was noted to be leukopenic at that time. EKG at that time was nonischemic, chest x-ray did not show acute findings, and bio fire was negative. Due to body aches, joint pain, chills with associated leukopenia patient had a extended tickborne panel sent out although initial Lyme screening was negative, was started on empiric doxycycline twice daily. Patient returns 1 day later 02/09/2024 with fatigue, lower extremity bilateral weakness, continued joint aches, and chills. He had no loss of consciousness or head strike. Repeat labs show EKG suspect a flutter without ischemic changes, and checks x- ray was without acute findings. Patient remains leukopenic. Phosphorus was low and repleted. High sensitive troponin was elevated at 670, repeat uptrending at 907. Patient did not have chest pain or shortness of breath at any point preceding admission or on admission. Given his failure to improve, elevated troponin, and overall poor clinical appearance he was recommended for admission and additional monitoring Patient seen at the bedside. He reports that he has had chronic muscle aches and joint pains for many years however these have been completely different in the last 2 to 3 days. Reports he has diffuse joint pains in his hips knees and shoulders, has felt that he has had chills and sweats, although has not had a measured temperature. He has not any chest pain at any point. Denies shortness of breath. Denies cough. Denies sputum production. Denies nausea, vomiting, abdominal pain, diarrhea, constipation. No hematochezia or melena. He has not syncopized. Does feel generally unwell/tired/weak but has not noticed any right versus left sided asymmetry to his strength. Denies sensory changes. No known tick bites or insect bites. He sees [facility] for his care and has had his cardiac care from Dr. Prince, records have been requested and record request is on his chart however med records are unfortunately closed for Thelma and on-call service looped back on voice change without ability to obtain records at time of admit Medical History: Reviewed Medications: Reviewed Surgical History: Reviewed Family history: Reviewed Allergies: Reviewed Social History: no tobacco or etoh Code Status: DNR Principal Diagnosis NSTEMI/ generalized weakness Discharge Exam He is alert and oriented. Neurological exam is nonfocal, reflexes are brisk Card exam is regular there are no murmurs she is no JVD His lungs are clear without wheezes or crackles Discharge Data Allergies Allergy/AdvReac Type Severity Reaction Status Date / Time No Known Allergies Allergy Unverified 02/09/24 11:37 Consultations 02/09/24 15:24 ED Decision to Admit Stat 02/09/24 16:50 Consult Cardiology Routine 02/13/24 14:28 Consult Neurology Routine 02/14/24 11:22 Consult Neurology Routine Ordered Studies 02/09/24 11:48 CT abd pelvis IV con only Stat CT angio chest PE protocol Stat CT head/brain wo con Stat Hospital Course (1) NSTEMI (non-ST elevated myocardial infarction): NSTEMI Without chest pain/chest pressure, is with underlying history of A-fib status post watchman and appears to be in a flutter on admission Demand ischemia *NSTEMI *Demand ischemia CTA is without evidence of PE. 3.4 cm infrarenal abdominal aortic aneurysm is noted, patient is aware of this and reports he has this followed annually and has been stable less than 4 cm Discontinue heparin per cardiology's recommendations of no anticoagulation is needed - Echo nl EF, severe concentric LVH, no RWMA, does have elevated right heart pressures History of CAD Reportedly with PCI and 2 stents, records pending from [facility]. Sees Dr. prince. Denies hx of heart failure discontinue cardizem as he has lower blood pressure Pravastatin 80 mg discontinued incase this is statin related Continue aspirin, received full dose on admit (2) Metabolic encephalopathy: Chills, weakness cannot get up, no defined source at the present ? Tickborne versus viral. Respiratory bio fire was neg 02/08/2024, patient does not have cough/pulmonary symptoms. No etoh use. CXR clear. No signs of cellulitis No signs of pneumonia, no urinary symptoms Initial Lyme screen was negative, Anaplasma/Babesia/extended tick panel/DNA PCR is pending Continue empiric doxycycline Blood cultures pending, urine culture polymicrobial Patient does not appear septic Unsure of cause though patient's phosphorus was low. May need to monitor phosphorus levels, PTHi, vitamin d as an outpatient. Consulted neurology. feels this is chronic, no further input. From the hospitalist standpoint, patient appears to be slightly stronger, however, concern if this is a neuromuscular condition. Patient also has elevated inflammatory markers. Patient did have a butterfly rash 2 days prior to discharge. Ordered lupus antibodies. will recommend patient have a neurological followup if no improvement: perhaps have an EMG study due to his proximal muscle weakness (3) Atrial fibrillation: S/p watchman.? Flutter on admitting EKG rate control Follow on telemetry, metoprolol IV available on-call if needed holding diltiazem. Plan Chronic stable issues: Osteoporosis: Has been on outpatient bisphosphonate, no acute change in management Total Time Total Time Spent Total Time Spent (In Minutes): 32 Discharge Plan Discharge Items Patient Disposition: Home - Home Health Services Reason For Visit: LEUKOPENIA ?TICK BORNE ILLNESS, NSTEMI ?T2 Discharge Diagnosis: weakness/ hypophosphatemia Activity: Resume your previous activity Non-emergency contact: Primary Care Provider Call non-emergency contact if: you have any medication questions Follow-up/Referrals: Mike Blanco M.D. [Primary Care Provider] - Diet: Heart Healthy Addtl Attending Provider Instructions: Recommend staying on the first floor. Recommend continuing with home health. I will write a discharge summary to your Primary care doctor so your provider can see the workup we did and continue moving forward. For now I would recommend at your next appointment to recheck your phosphorus as well as your inflammatory markers. We are stopping statins in the short term in case this is contributing to your weakness. We are also holding diltiazem due to low blood pressures. I will also recommend followup with Neurology. We can help set you with [facility] if you like. Also followup with your PCP in 1-2 weeks. Pending Studies at Discharge: No Stand-Alone Forms: My [facility], Smoking Cessation Medications and DC Order Prescriptions: Continued cyanocobalamin (vitamin B-12) 1,000 mcg tablet, sublingual 1,000 mcg PO DAILY ibandronate 150 mg tablet 150 mg PO MONTHLY Caltrate with Vitamin D3 600 mg tablet 600 mg PO PM Vitamin D3 2,000 mcg tablet 2,000 mcg PO DAILY aspirin 81 mg tablet 81 mg PO DAILY docusate calcium 240 mg tablet 240 mg PO PM iron 65 mg tablet 65 mg PO 4XWK Discontinued pravastatin 80 mg tablet 80 mg PO PM diltiazem HCl [Cardizem CD] 120 mg capsule,extended release 24hr 120 mg PO DAILY doxycycline hyclate [LymePak] 100 mg tablet 100 mg PO BID Discharge Orders: Discharge Order (Routine); Ordered 02/14/24 Ordered By: Lan Fuller Admission Data Admit Date/Time: 02/09/24 15:51 Attending Provider: Lan Fuller Admit Provider: Mars Nassar Primary Care Provider: Mike Blanco Other Providers: Mars Nassar; Ritesh Olsen; Romero Bui; Jefe Nunez; Kathi Guzman; Taylor Reddy; Georgie Pearce; Chapincito Dwyer; Lakisha Blackwood; Chapincito Dumont; Lakisha Kowalski; James Dacosta; Sergey Mac; Anurag Dumont; Jan Villarreal; Monae Sheehan; Benja Bills; Josse Fu; Arleen Ferrari; Cliff Meehan; Theresa Sullivan; Lachelle Webber; Jan Rollins Other Interventions: Discharge Summary Assessment (RN) Last Done: 02/14/24 17:55 Coding Level of Care Code 33301 INP/OBS DISCH >30 MIN Diagnoses NSTEMI (non-ST elevated myocardial infarction) I21.4 Metabolic encephalopathy G93.41 Chronic atrial fibrillation I48.20 Atrial fibrillation type: unspecified chronic
== END 2024-02-14 18:32 | disposition home health service (06) | DRG 280 ==
LOC: ED 10:12 → SUATTDRO 15:51 → EDINP 15:51 → 2S 21:44